=== PATIENT | male | born 1970 | race Caucasian/White ===

== ENCOUNTER 2016-08-18 21:11 | Emergency (ER) | payer BC ==
[2016-08-18 21:32] VITALS: BP 134/78; PULSE 98; RESP 18; TEMP 98.5
--- NOTE | 2016-08-18 21:50 | ED ---
General Adult HPI - General Chief complaint: Back Pain/Injury Stated complaint: Back Pain Time Seen by Provider: 08/18/16 21:39 Source: patient, RN notes reviewed Mode of arrival: ambulatory Limitations: no limitations - History of Present Illness Initial comments: Patient for 46-year-old male who presents emergency room today with chief complaint of acute on chronic back pain. He does admit that he's had pain meds been radiating up from the lower back. He states feels it in his shoulders. He states worse with movements. He states that he feels like it's better as he gets up and moves around lesions up. He does admit that he's had similar pain in the past that is gone to chiropractors for. he is also had massages for symptoms help. States she's used ibuprofen and tramadol which helps with the pain. Patient does admit that it was worse today while he was at work. Denies any specific injury or trauma. Denies any other complaints or symptoms. Patient denies any recent fever, chills, shortness of breath, chest pain, abdominal pain, nausea or vomiting, numbness or tingling, dysuria or hematuria, constipation or diarrhea, headaches or visual changes, or any other complaints. - Related Data Previous Rx's Medication Instructions Recorded Aspirin 81 mg PO DAILY #1 chewable 02/20/16 Lisinopril-Hctz 20-12.5 mg 1 tab PO BID #60 tab 02/20/16 [Zestoretic 20-12.5] Cyclobenzaprine [Flexeril] 10 mg PO TID #20 tab 08/18/16 Allergies Allergy/AdvReac Type Severity Reaction Status Date / Time No Known Allergies Allergy Verified 08/18/16 21:31 Review of Systems ROS Statement: Those systems with pertinent positive or pertinent negative responses have been documented in the HPI. ROS Other: All systems not noted in ROS Statement are negative. Past Medical History Past Medical History: GERD/Reflux Additional Past Medical History / Comment(s): diet controlled diabetic History of Any Multi-Drug Resistant Organisms: None Reported Past Surgical History: Appendectomy Additional Past Anesthesia/Blood Transfusion Reaction / Comment(s): combatative when coming out of aa Past Psychological History: No Psychological Hx Reported Smoking Status: Never smoker Past Alcohol Use History: None Reported Past Drug Use History: None Reported - Past Family History Mother Additional Family Medical History / Comment(s): crohns. 3 aunts on mom side had colon ca Father Family Medical History: Congestive Heart Failure (CHF) Additional Family Medical History / Comment(s): dads 7 brothers had chf as well General Exam - General Exam Comments Initial Comments: General: The patient is awake and alert, in no distress, and does not appear acutely ill. Eye: Pupils are equal, round and reactive to light, extra-ocular movements are intact. No nystagmus. There is normal conjunctiva bilaterally. No signs of icterus. Ears, nose, mouth and throat: There are moist mucous membranes and no oral lesions. Neck: The neck is supple, there is no tenderness or JVD. Cardiovascular: There is a regular rate and rhythm. No murmur, rub or gallop is appreciated. Respiratory: Lungs are clear to auscultation, respirations are non-labored, breath sounds are equal. No wheezes, stridor, rales, or rhonchi. Musculoskeletal: Full range of motion. No murmur. Cervical, thoracic, lumbar spine. No step-offs is appreciated. Mild tenderness lower lumbar. Mild tenderness paravertebrally to the upper. Pain reproduced with certain movements. Strength 5/5. Sensation intact. Pulses equal bilaterally 2+. Neurological: A&O x 3. CN II-XII intact, There are no obvious motor or sensory deficits. Coordination appears grossly intact. Speech is normal. Skin: Skin is warm and dry and no rashes or lesions are noted. Psychiatric: Cooperative, appropriate mood & affect, normal judgment. Limitations: no limitations Course Vital Signs 08/18/16 21:29 Temperature 98.5 F Pulse Rate 98 Respiratory 18 Rate Blood Pressure 134/78 O2 Sat by Pulse 97 Oximetry Medical Decision Making - Medical Decision Making Patient's pain symptoms consistent musculoskeletal. Advised to follow-up with the family doctor in orthopedic. Disposition Clinical Impression: Acute exacerbation of chronic low back pain Disposition: HOME SELF-CARE Condition: Good Instructions: Chronic Back Pain (ED) Additional Instructions: Please use medication as discussed. Please follow-up with family doctor in the next 2 days of symptoms have not improved. Please return to emergency room if the symptoms increase or worsen or for any other concerns. Prescriptions: Cyclobenzaprine [Flexeril] 10 mg PO TID #20 tab Time of Disposition: 21:49
[2016-08-18] MEDS ORDERED: CYCLOBENZAPRINE 10MG STARTER 3 TAB BTL PO STA (22:03)
== END 2016-08-18 22:15 | disposition home or self-care (01) ==
LOC: EC 21:11
DX: G89.29 Other chronic pain (principal); M54.5 Low back pain
CPT/HCPCS: 99283

== ENCOUNTER 2016-11-13 06:23 | Day surgery (SDC) | payer BC ==
[2016-11-10 14:52] VITALS: BMI 42.3
[~2016-11-13 06:23] MED LIST: DEXAMETHASONE SOD PHOSPHATE 10 MG/ML 1 ML VIAL IV ONE; HEPARIN SODIUM,PORCINE 5,000 UNIT/ML 1 ML VIAL SQ ONE; LACTATED RINGERS 1,000 ML IV SCH; LIDOCAINE 1% 20 ML VIAL (10MG/ML) FOR IV START INTRADERMA PRN; ONDANSETRON 4 MG/2 ML VIAL IVP ONE; SCOPOLAMINE 1.5MG/72HR PATCH TRANSDERM ONE; ceFAZolin 3 GM in SODIUM CHLORIDE 0.9% 100 ML IVPB ONE
[2016-11-13 06:46] LABS: Glucose,Whole Blood 120 mg/dL (75-99)
[2016-11-13] MEDS ORDERED: LIDOCAINE 4% (PF) 5 ML AMP IH STA (07:22)
--- NOTE | 2016-11-13 07:47 | P.GSHP ---
History of Present Illness H&P Date: 11/13/16 Chief Complaint: Right upper Quadrant pain This is a 46-year-old male for from Dr. Dave Trinh. Patient has had complaints of epigastric and right upper quadrant pain. His recent workup shows evidence of cholelithiasis with chronic cholecystitis. He presents today for laparoscopic cholecystectomy - Constitutional Constitutional: Reports as per HPI Past Medical History Past Medical History: Diabetes Mellitus, GERD/Reflux, Hypertension, Myocardial Infarction ([place]) Additional Past Medical History / Comment(s): DIET CONTROLLED DIABETIC Last Myocardial Infarction Date:: 02/19/16 History of Any Multi-Drug Resistant Organisms: None Reported Past Surgical History: Appendectomy, Bariatric Surgery, Heart Catheterization Additional Past Surgical History / Comment(s): LAB BAND Past Anesthesia/Blood Transfusion Reactions: Previous Problems w/ Anesthesia Additional Past Anesthesia/Blood Transfusion Reaction / Comment(s): COMBATIVE WHEN COMING OUT OF ANESTHESIA Smoking Status: Never smoker - Past Family History Mother Additional Family Medical History / Comment(s): crohns. Father Family Medical History: Congestive Heart Failure (CHF) Additional Family Medical History / Comment(s): dads 7 brothers had chf as well Medications and Allergies Home Medications Medication Instructions Recorded Confirmed Type Cholecalciferol [Vitamin D3] 1,000 unit PO DAILY 08/18/16 11/10/16 History Ibuprofen [Motrin] 800 mg PO BID PRN 08/18/16 11/10/16 History Multivitamin [Men's Multi-Vitamin] 1 tab PO DAILY 08/18/16 11/10/16 History Aspirin [Adult Low Dose Aspirin EC] 81 mg PO DAILY 11/10/16 11/10/16 History Allergies Allergy/AdvReac Type Severity Reaction Status Date / Time No Known Allergies Allergy Verified 11/13/16 06:36 Surgical - Exam Vital Signs Temp Pulse Resp BP Pulse Ox 97 F L 83 16 184/89 98 11/13/16 06:39 11/13/16 06:39 11/13/16 06:39 11/13/16 06:39 11/13/16 06:39 - General well developed, no distress - Eyes PERRL - ENT normal pinna - Neck no masses - Respiratory normal expansion - Cardiovascular Rhythm: regular - Abdomen Mild right upper quadrant pain Abdomen: soft Results - Labs Abnormal Lab Results - Last 24 Hours (Table) 11/13/16 Range/Units 06:43 POC Glucose (mg/dL) 120 H (75-99) mg/dL Assessment and Plan Plan: Right upper quadrant pain, cholelithiasis. We'll perform laparoscopic cholecystectomy.
[2016-11-13] MEDS ORDERED: ROCURONIUM BROMIDE 10 MG/ML 10 ML VIAL IV ONE (07:50)
[2016-11-13] MEDS ORDERED: SUCCINYLCHOLINE CHLORIDE VIAL 200 MG/10 ML VIAL IV ONE (07:50)
[2016-11-13] MEDS ORDERED: GLYCOPYRROLATE 0.2 MG/ML 2 ML VIAL ONE (07:50)
[2016-11-13] MEDS ORDERED: LIDOCAINE 1% INJ 10MG/ML (20 ML MDV) ONE (07:50)
[2016-11-13] MEDS ORDERED: fentaNYL (PF) 50 MCG/ML 2 ML AMP ONE (07:50)
[2016-11-13] MEDS ORDERED: NEOSTIGMINE 1 MG/ML 10 ML VIAL ONE (07:50)
[2016-11-13] MEDS ORDERED: PROPOFOL 10 MG/ML 20 ML VIAL IV ONE (07:50)
[2016-11-13] MEDS ORDERED: MIDAZOLAM 2 MG/2 ML VIAL ONE (07:50)
[2016-11-13] MEDS ORDERED: LIDOCAINE 1%-EPI 1:100,000 20 ML VIAL SQ ONE (08:22)
--- NOTE | 2016-11-13 09:06 | P.OP ---
Date of Procedure: 11/13/16 Preoperative Diagnosis: Cholecystitis Cholelithiasis Postoperative Diagnosis: Cholecystitis Cholelithiasis Procedure(s) Performed: Laparoscopic cholecystectomy Implants: Anesthesia: LISA Surgeon: Kvng Mills Pathology: other Condition: stable Disposition: PACU (All bladder) Indications for Procedure: Operative Findings: Description of Procedure: The patient was placed on the operating table. The patient received a general endotracheal tube anesthesia. The patients abdomen was prepped and draped in the usual sterile fashion. Through an infraumbilical stab incision, the fascia of the anterior abdominal wall was grasped with a pair of Kochers and then the Veress needle was placed in the peritoneal cavity. Position of the Veress needle was confirmed with positive drop test. The abdomen was then insufflated. After adequate insufflation, the 10 mm trocar was placed in the peritoneal cavity. Following this the laparoscope was placed in the peritoneal cavity. The patient was placed in the head-up, right side up position and then a 5 mm trocar was placed in the right lateral and right subcostal position under direct visualization. A 8 mm trocar was placed in the epigastric position. The gallbladder was grasped in the fundus and infundibulum. Traction on the gallbladder was placed in the lateral and the cephalad positions. The triangle of Calot was visualized.. The cystic duct was bluntly dissected until the union of the cystic duct and common bile duct was seen. Cystic duct was then ligated with a 2-0 Ethibond suture and the tied knot device. 2 sutures used to ligate the cystic duct. And then the cystic duct was then transected with Harmonic scissors.. The cystic artery divided and sealed with the Harmonic scissors. The gallbladder was then removed from the liver bed using Harmonic scissors. The gallbladder was then extracted through the epigastric port site. Operative field was checked for any bleeding spots and Harmonic scissors was used to coagulate the liver bed. The abdomen was irrigated. The trocars were removed. The skin was closed using interrupted 3- 0 Vicryl suture. Dermabond dressing were applied. The patient tolerated the procedure well.
[2016-11-13] MEDS ORDERED: LACTATED RINGERS 1,000 ML IV ONE ×3 (09:10→10:18)
[2016-11-13 09:26] VITALS: TEMP 98
[2016-11-13] MEDS ORDERED: KETOROLAC 30 MG/ML 1 ML VIAL IVP ONE (09:38)
[2016-11-13] MEDS: HYDROmorphone 1 MG/ML 1 ML SYRINGE IVP PRN ×3 (09:55→10:18)
[2016-11-13 10:26] VITALS: RESP 16
[2016-11-13] MEDS ORDERED: HYDROcodone/APAP 7.5-325MG 1 EACH TAB PO ONE (11:21)
[2016-11-13 12:20] VITALS: BP 138/77; PULSE 94
== END 2016-11-13 12:55 | disposition home or self-care (01) ==
LOC: OR 06:23
PROVIDERS: ATTEND Surgery
DX: K80.10 Calculus of gallbladder with chronic cholecystitis without obstruction (principal); E88.89 Other specified metabolic disorders; Z98.84 Bariatric surgery status; I25.2 Old myocardial infarction; E11.9 Type 2 diabetes mellitus without complications; I10 Essential (primary) hypertension; E66.01 Morbid (severe) obesity due to excess calories; Z68.41 Body mass index [BMI] 40.0-44.9, adult; Z79.82 Long term (current) use of aspirin; Z79.899 Other long term (current) drug therapy
CPT/HCPCS: 94640; 93005; 88304; 47562; J2001 ×2; J2250; J0330; J1644; J1100; J2710; J0690; J2405; J3010; J1885; J1170; J2704

== ENCOUNTER 2016-11-19 13:47 | Emergency (ER) | payer BC ==
--- NOTE | 2016-11-19 15:13 | ED ---
General Adult HPI - General Chief complaint: Recheck/Abnormal Lab/Rx Stated complaint: Leg swelling Time Seen by Provider: 11/19/16 14:54 Source: patient, RN notes reviewed Mode of arrival: ambulatory Limitations: no limitations - History of Present Illness Initial comments: Patient is a pleasant 46 year old male presenting to the emergency department complaining of inner thigh discomfort. Onset of symptoms was 5 days ago. Patient did have gallbladder surgery 6 days ago. Patient states it feels somewhat like chaffing however worse. Discomfort is increased with touch and movement. Patient states there may be some discomfort and swelling of the scrotal region as well. Patient states his legs have been somewhat achy since the day after surgery. No abdominal pain. No fevers. No nausea vomiting. - Related Data Home Medications Medication Instructions Recorded Confirmed Multivitamin [Men's Multi-Vitamin] 1 tab PO DAILY 08/18/16 11/19/16 Aspirin [Adult Low Dose Aspirin EC] 81 mg PO DAILY 11/10/16 11/19/16 Docusate [Colace] 100 mg PO BID PRN 11/19/16 11/19/16 HYDROcodone/APAP 7.5-325MG [[place] 1 tab PO Q4H PRN 11/19/16 11/19/16 7.5] Losartan Potassium 50 mg PO DAILY 11/19/16 11/19/16 Previous Rx's Medication Instructions Recorded Cephalexin [Keflex] 500 mg PO QID #40 cap 11/19/16 Allergies Allergy/AdvReac Type Severity Reaction Status Date / Time No Known Allergies Allergy Verified 11/19/16 16:08 Review of Systems ROS Statement: Those systems with pertinent positive or pertinent negative responses have been documented in the HPI. ROS Other: All systems not noted in ROS Statement are negative. Constitutional: Denies: fever Eyes: Denies: eye pain ENT: Denies: ear pain Respiratory: Denies: cough Cardiovascular: Denies: chest pain Endocrine: Denies: fatigue Gastrointestinal: Denies: abdominal pain, vomiting Genitourinary: Denies: urgency Musculoskeletal: Denies: back pain Skin: Reports: rash Neurological: Denies: weakness Past Medical History Past Medical History: Diabetes Mellitus, GERD/Reflux, Hypertension, Myocardial Infarction ([place]) Additional Past Medical History / Comment(s): DIET CONTROLLED DIABETIC History of Any Multi-Drug Resistant Organisms: None Reported Past Surgical History: Appendectomy, Bariatric Surgery, Cholecystectomy, Heart Catheterization Additional Past Surgical History / Comment(s): LAB BAND Past Anesthesia/Blood Transfusion Reactions: Previous Problems w/ Anesthesia Additional Past Anesthesia/Blood Transfusion Reaction / Comment(s): COMBATIVE WHEN COMING OUT OF ANESTHESIA Past Psychological History: No Psychological Hx Reported Smoking Status: Never smoker Past Alcohol Use History: None Reported Past Drug Use History: None Reported - Past Family History Mother Additional Family Medical History / Comment(s): crohns. Father Family Medical History: Congestive Heart Failure (CHF) Additional Family Medical History / Comment(s): dads 7 brothers had chf as well General Exam Limitations: no limitations General appearance: alert, in no apparent distress Head exam: Present: atraumatic Eye exam: Present: normal appearance, PERRL ENT exam: Present: normal oropharynx Neck exam: Present: normal inspection Respiratory exam: Present: normal lung sounds bilaterally Cardiovascular Exam: Present: regular rate, normal rhythm GI/Abdominal exam: Present: soft, tenderness (Minimal tenderness in the epigastric region were patient's incision is.) exam: Present: other (Trace amount of erythema of the scrotum. No significant tenderness. No significant swelling.) Extremities exam: Present: other (Mild discomfort through exam of the legs.) Neurological exam: Present: alert Psychiatric exam: Present: normal affect, normal mood Skin exam: Present: rash (Mild erythema upper inner thighs right greater than left.) Course Vital Signs 11/19/16 11/19/16 11/19/16 13:59 15:13 16:06 Temperature 99.0 F Pulse Rate 107 H 70 96 Respiratory 18 18 18 Rate Blood Pressure 153/80 156/78 143/67 O2 Sat by Pulse 97 95 Oximetry Medical Decision Making - Medical Decision Making Case was discussed with Dr. Moeller who agrees with plan. Patient and family updated on results and need for follow-up. Patient states he does have an appointment Thursday with Dr. Mills. Disposition Clinical Impression: Cellulitis Disposition: HOME SELF-CARE Condition: Stable Instructions: Cellulitis (ED) Additional Instructions: Please follow-up tomorrow with your primary care physician. Please also follow- up with your surgeon, Dr. Mills Thursday as scheduled. Return for fever, increased pain, swelling, redness, worsening symptoms or other concerns. Prescriptions: Cephalexin [Keflex] 500 mg PO QID #40 cap Referrals: Dave Cruz DO [Primary Care Provider] - 1-2 days Time of Disposition: 16:36
--- NOTE | 2016-11-19 15:50 | US ---
EXAMINATION TYPE: US venous doppler duplex LE DATE OF EXAM: 11/19/2016 3:41 PM COMPARISON: NONE CLINICAL HISTORY: Pain. Bilateral leg edema, worse on the left x 4 days SIDE PERFORMED: Bilateral TECHNIQUE: The lower extremity deep venous system is examined utilizing real time linear array sonog bright with graded compression, doppler sonography and color-flow sonography. VESSELS IMAGED: External Iliac Vein (EIV) Common Femoral Vein Deep Femoral Vein Greater Saphenous Vein * Femoral Vein Popliteal Vein Small Saphenous Vein * Proximal Calf Veins (* superficial vessels) Right Leg: No evidence of DVT Left Leg: No evidence of DVT Grayscale, color doppler, spectral doppler imaging performed of the deep veins of the lower extremiti es. There is normal flow, compressibility, vascular waveforms bilaterally. IMPRESSION: No ultrasound evidence for acute DVT in either lower extremity.
--- NOTE | 2016-11-19 16:15 | US ---
EXAMINATION TYPE: US scrotum with doppler. Grayscale and color Doppler Duplex imaging performed of estelita pagan scrotum. DATE OF EXAM: 11/19/2016 COMPARISON: NONE CLINICAL HISTORY: Pain. Bilateral scrotal edema and pain x 2-3 days EXAM MEASUREMENTS: TESTICLES: Right Testicle: 4.8 x 2.7 x 4.7cm Left Testicle: 4.7 x 2.5 x 3.9cm EPIDIDYMIS HEAD: Right Epididymis: 1.2cm Left Epididymis: 1.4cm Doppler performed to assess for testicular vascularity; good bilateral color flow and waveforms are s een. There is no evidence of testicular torsion. Presence of hydroceles: yes, fluid collection lateral left testicle = 1.4 x 1.3 x 1.3cm and inferior to right testicle = 2.2cm Presence of varicoceles: no Cystic area left testicle = 0.4 x 0.5 x 0.3cm IMPRESSION: 1. NORMAL INTRINSIC TESTICLES. 2. SMALL LEFT-SIDED HYDROCELE.
[2016-11-19] MEDS ORDERED: CEPHALEXIN 500MG STARTER PACK 4 CAP BTL PO STA (16:30)
[2016-11-19 17:06] VITALS: BP 134/86; PULSE 82; RESP 20; TEMP 98.5
== END 2016-11-19 17:06 | disposition home or self-care (01) ==
LOC: EC 13:47
DX: L03.90 Cellulitis, unspecified (principal); N50.89 Other specified disorders of the male genital organs; I10 Essential (primary) hypertension; I25.2 Old myocardial infarction; Z79.82 Long term (current) use of aspirin; Z79.899 Other long term (current) drug therapy; Z98.890 Other specified postprocedural states
CPT/HCPCS: 76870; 93970; 93975; 99283

== ENCOUNTER 2017-06-03 18:10 | Emergency (ER) | payer BC ==
[2017-06-03 18:36] VITALS: RESP 18; TEMP 98.5
[2017-06-03 18:48] LABS: Appearance,Urine Clear (Clear); Bilirubin,Urine Negative (Negative); Blood,Urine Negative (Negative); Color,Urine Yellow; Glucose,Urine (UA) Trace (Negative); Ketones,Urine Trace (Negative); Leukocyte Esterase,Urine Negative (Negative); Nitrite,Urine Negative (Negative); Protein,Urine Trace (Negative); Specific Gravity,Urine 1.023 (1.001-1.035); Urobilinogen,Urine <2.0 mg/dL (<2.0)
[2017-06-03] MEDS ORDERED: HYDROmorphone 2 MG/ML 1 ML SYRINGE IVP STA (20:59)
[2017-06-03] MEDS ORDERED: KETOROLAC 30 MG/ML 1 ML VIAL IVP STA (20:59)
[2017-06-03] MEDS ORDERED: SODIUM CHLORIDE 0.9% 1,000 ML IV STA (20:59)
--- NOTE | 2017-06-03 21:10 | ED ---
Abdominal Pain HPI - General Chief Complaint: Abdominal Pain Stated Complaint: Back pain Time Seen by Provider: 06/03/17 20:51 Source: patient Mode of arrival: ambulatory Limitations: no limitations - History of Present Illness Initial Comments: 47-year-old male patient presents to the emergency department today for evaluation of right lower back pain. Patient states that symptoms started 2 days ago. He states that the pain is constantly present, but has episodes with pain becomes more severe. States it hurts worse with movement. He denies any numbness or tingling in his legs. Denies any loss of bowel or bladder control. States he does have lower back pain but this is much different. States the pain is more localized. He states he has had kidney stones in the past and the pain feels similar to that. He denies any difficulty urinating. Denies any hematuria. He is not feeling nauseated nor has he vomited. Denies any constipation or diarrhea. States that he has had blood in his stools for quite some time now. States that recently he has had increased bloody stools. He states it is bright red. He states he knows he has internal hemorrhoids he is unsure if this is related. Patient states last colonoscopy was approximately 4- 5 years ago and he did have polyps on that exam. He denies any abdominal pain. Patient denies any recent rash, fever, chills, shortness breath, chest pain, back pain, numbness, tingling, dizziness, weakness, headache, visual changes, or any other complaints. - Related Data Home Medications Medication Instructions Recorded Confirmed Multivitamin [Men's Multi-Vitamin] 1 tab PO DAILY 08/18/16 06/03/17 Aspirin [Adult Low Dose Aspirin EC] 81 mg PO DAILY 11/10/16 06/03/17 Losartan Potassium 50 mg PO DAILY 11/19/16 06/03/17 Cholecalciferol [Vitamin D3] 1,000 unit PO DAILY 06/03/17 06/03/17 Previous Rx's Medication Instructions Recorded Cyclobenzaprine [Flexeril] 10 mg PO TID #15 tab 06/03/17 Hydrocodone/Acetaminophen [[place] 1 tab PO Q6HR PRN #15 tab 06/03/17 5-325] Allergies Allergy/AdvReac Type Severity Reaction Status Date / Time No Known Allergies Allergy Verified 06/03/17 21:10 Review of Systems ROS Statement: Those systems with pertinent positive or pertinent negative responses have been documented in the HPI. ROS Other: All systems not noted in ROS Statement are negative. Past Medical History Past Medical History: Diabetes Mellitus, GERD/Reflux, Hypertension, Myocardial Infarction ([place]) Additional Past Medical History / Comment(s): DIET CONTROLLED DIABETIC Last Myocardial Infarction Date:: 02/19/16 History of Any Multi-Drug Resistant Organisms: None Reported Past Surgical History: Appendectomy, Bariatric Surgery, Cholecystectomy, Heart Catheterization Additional Past Surgical History / Comment(s): LAB BAND Past Anesthesia/Blood Transfusion Reactions: Previous Problems w/ Anesthesia Additional Past Anesthesia/Blood Transfusion Reaction / Comment(s): COMBATIVE WHEN COMING OUT OF ANESTHESIA Past Psychological History: No Psychological Hx Reported Smoking Status: Never smoker Past Alcohol Use History: None Reported Past Drug Use History: None Reported - Past Family History Mother Additional Family Medical History / Comment(s): crohns. Father Family Medical History: Congestive Heart Failure (CHF) Additional Family Medical History / Comment(s): dads 7 brothers had chf as well General Exam Limitations: no limitations General appearance: alert, in no apparent distress, other (Physical well- developed, well-nourished adult male patient in no acute distress. Vital signs upon presentation were temperature 98.5F, pulse 103, respirations 18, blood pressure 158/79, pulse ox 96% on room air.) Eye exam: Present: normal appearance, PERRL, EOMI. Absent: scleral icterus, conjunctival injection, periorbital swelling ENT exam: Present: normal exam, normal oropharynx, mucous membranes moist Respiratory exam: Present: normal lung sounds bilaterally. Absent: respiratory distress, wheezes, rales, rhonchi, stridor Cardiovascular Exam: Present: regular rate, normal rhythm, normal heart sounds. Absent: systolic murmur, diastolic murmur, rubs, gallop, clicks GI/Abdominal exam: Present: soft, normal bowel sounds. Absent: distended, tenderness, guarding, rebound, rigid Extremities exam: Present: normal inspection, full ROM, normal capillary refill. Absent: tenderness, pedal edema, joint swelling, calf tenderness Back exam: Present: normal inspection, tenderness (Right lower back tenderness, mild.). Absent: CVA tenderness (R), CVA tenderness (L) Neurological exam: Present: alert, oriented X3, CN II-XII intact Psychiatric exam: Present: normal affect, normal mood Skin exam: Present: warm, dry, intact, normal color. Absent: rash Course Vital Signs 06/03/17 06/03/17 18:34 22:54 Temperature 98.5 F Pulse Rate 103 H 92 Respiratory 18 18 Rate Blood Pressure 158/79 140/79 O2 Sat by Pulse 96 95 Oximetry Medical Decision Making - Medical Decision Making 47-year-old male patient presented to the emergency department today for complaints of right lower back pain. He also reported a blood in his stools however states his been going on on and off since he turned 20. He states he does get regular colonoscopies. Physical examination did reveal some mild right lower back tenderness. Abdomen was soft and nontender. KUB x-ray and CT of the abdomen and pelvis was negative for any acute abdominal abnormalities. There was evidence of what could be a choledochal cyst versus abnormal calcification the biliary tree. Labs reviewed and were unremarkable. Patient was informed of all these findings. I did discuss the possibility of his pain being musculoskeletal in origin. He'll be given pain medication and muscle relaxers for management. He is instructed to follow-up with his primary care physician as well as his GI specialist for further evaluation of the blood in his stools as well as the pain is lower back. He is instructed to return here immediately for any new, worsening, or concerning symptoms. He verbalizes understanding and agrees with this plan. - Lab Data Result diagrams: 06/03/17 21:30 06/03/17 21:30 Lab Results 06/03/17 06/03/17 06/03/17 Range/Units 18:37 21:30 21:30 WBC 8.4 (3.8-10.6) k/uL RBC 5.37 (4.30-5.90) m/uL Hgb 15.8 (13.0-17.5) gm/dL Hct 46.9 (39.0-53.0) % MCV 87.3 (80.0-100.0) fL MCH 29.4 (25.0-35.0) pg MCHC 33.6 (31.0-37.0) g/dL RDW 12.9 (11.5-15.5) % Plt Count 252 (150-450) k/uL Neutrophils % 53 % Lymphocytes % 36 % Monocytes % 6 % Eosinophils % 2 % Basophils % 1 % Neutrophils # 4.4 (1.3-7.7) k/uL Lymphocytes # 3.1 (1.0-4.8) k/uL Monocytes # 0.5 (0-1.0) k/uL Eosinophils # 0.2 (0-0.7) k/uL Basophils # 0.0 (0-0.2) k/uL PT (9.0-12.0) sec INR (<1.2) APTT (22.0-30.0) sec Sodium 141 (137-145) mmol/L Potassium 4.3 (3.5-5.1) mmol/L Chloride 106 (98-107) mmol/L Carbon Dioxide 25 (22-30) mmol/L Anion Gap 10 mmol/L BUN 18 (9-20) mg/dL Creatinine 0.73 (0.66-1.25) mg/dL Est GFR (MDRD) Af Amer >60 (>60 ml/min/1.73 sqM) Est GFR (MDRD) Non-Af >60 (>60 ml/min/1.73 sqM) Glucose 143 H (74-99) mg/dL Calcium 9.5 (8.4-10.2) mg/dL Total Bilirubin 0.3 (0.2-1.3) mg/dL AST 43 (17-59) U/L ALT 74 H (21-72) U/L Alkaline Phosphatase 135 H (38-126) U/L Total Protein 7.3 (6.3-8.2) g/dL Albumin 4.1 (3.5-5.0) g/dL Amylase 75 (30-110) U/L Lipase 119 (23-300) U/L Urine Color Yellow Urine Appearance Clear (Clear) Urine pH 6.0 (5.0-8.0) Ur Specific [place] 1.023 (1.001-1.035) Urine Protein Trace H (Negative) Urine Glucose (UA) Trace H (Negative) Urine Ketones Trace H (Negative) Urine Blood Negative (Negative) Urine Nitrite Negative (Negative) Urine Bilirubin Negative (Negative) Urine Urobilinogen <2.0 (<2.0) mg/dL Ur Leukocyte Esterase Negative (Negative) 06/03/17 Range/Units 21:30 WBC (3.8-10.6) k/uL RBC (4.30-5.90) m/uL Hgb (13.0-17.5) gm/dL Hct (39.0-53.0) % MCV (80.0-100.0) fL MCH (25.0-35.0) pg MCHC (31.0-37.0) g/dL RDW (11.5-15.5) % Plt Count (150-450) k/uL Neutrophils % % Lymphocytes % % Monocytes % % Eosinophils % % Basophils % % Neutrophils # (1.3-7.7) k/uL Lymphocytes # (1.0-4.8) k/uL Monocytes # (0-1.0) k/uL Eosinophils # (0-0.7) k/uL Basophils # (0-0.2) k/uL PT 10.1 (9.0-12.0) sec INR 1.0 (<1.2) APTT 24.8 (22.0-30.0) sec Sodium (137-145) mmol/L Potassium (3.5-5.1) mmol/L Chloride (98-107) mmol/L Carbon Dioxide (22-30) mmol/L Anion Gap mmol/L BUN (9-20) mg/dL Creatinine (0.66-1.25) mg/dL Est GFR (MDRD) Af Amer (>60 ml/min/1.73 sqM) Est GFR (MDRD) Non-Af (>60 ml/min/1.73 sqM) Glucose (74-99) mg/dL Calcium (8.4-10.2) mg/dL Total Bilirubin (0.2-1.3) mg/dL AST (17-59) U/L ALT (21-72) U/L Alkaline Phosphatase (38-126) U/L Total Protein (6.3-8.2) g/dL Albumin (3.5-5.0) g/dL Amylase (30-110) U/L Lipase (23-300) U/L Urine Color Urine Appearance (Clear) Urine pH (5.0-8.0) Ur Specific [place] (1.001-1.035) Urine Protein (Negative) Urine Glucose (UA) (Negative) Urine Ketones (Negative) Urine Blood (Negative) Urine Nitrite (Negative) Urine Bilirubin (Negative) Urine Urobilinogen (<2.0) mg/dL Ur Leukocyte Esterase (Negative) - Radiology Data Radiology results: report reviewed, image reviewed CT abdomen and pelvis without contrast was obtained, report was reviewed in its entirety. Impression by Dr. Sandra shows no evidence of renal stone or obstruction. Cholecystectomy. Possible choledocholithiasis or unusual calcified gallstone in the biliary tree. Cholecystectomy is new compared to old exam. No sign of appendicitis. Two upright views of the abdomen show bariatric surgery lap band noted. Bowel gas pattern is normal. There is no sign of intestinal obstruction or pneumoperitoneum. Fecal pattern is normal. Lung bases are clear. There are no definite pathologic calcifications over the kidneys. There is a 4 mm calcification over the right upper quadrant in the right renal calculus cannot be entirely excluded. There is spurring of the acetabula. Conclusion by Dr. Sandra shows nonacute abdomen. Disposition Clinical Impression: Acute low back pain, Lower GI bleeding, Choledochal cyst Disposition: HOME SELF-CARE Condition: Good Instructions: Gastrointestinal Bleeding (ED), Acute Low Back Pain (ED) Additional Instructions: Take medications as directed. Apply warm compresses and continue using her home pain relief cream. Follow-up with your primary care physician and your GI specialist for further evaluation. Return here immediately for any new, worsening, or concerning symptoms. Prescriptions: Cyclobenzaprine [Flexeril] 10 mg PO TID #15 tab Hydrocodone/Acetaminophen [[place] 5-325] 1 tab PO Q6HR PRN #15 tab PRN Reason: Pain Referrals: Dave Cruz DO [Primary Care Provider] - 1-2 days Marjorie Lunsford MD [STAFF PHYSICIAN] - 1-2 days Time of Disposition: 23:10
[2017-06-03 21:49] LABS: Basophils % (A) 1 %; Eosinophils # (A) 0.2 k/uL (0-0.7); Eosinophils % (A) 2 %; HCT 46.9 % (39.0-53.0); HGB 15.8 gm/dL (13.0-17.5); Lymphocytes # (A) 3.1 k/uL (1.0-4.8); Lymphocytes % (A) 36 %; MCH 29.4 pg (25.0-35.0); MCHC 33.6 g/dL (31.0-37.0); MCV 87.3 fL (80.0-100.0); Mean Platelet Volume 6.7; Monocytes # (A) 0.5 k/uL (0-1.0); Monocytes % (A) 6 %; Neutrophils # (A) 4.4 k/uL (1.3-7.7); Neutrophils % (A) 53 %; Platelet Count 252 k/uL (150-450); RBC 5.37 m/uL (4.30-5.90); RDW 12.9 % (11.5-15.5); WBC 8.4 k/uL (3.8-10.6)
--- NOTE | 2017-06-03 21:56 | XR ---
EXAMINATION TYPE: XR KUB DATE OF EXAM: 06/03/2017 9:48 PM CLINICAL HISTORY: Right flank pain TECHNIQUE: 2 upright views. COMPARISON: None. Findings There is bariatric surgery lap band noted. Bowel gas pattern is normal. There is no sign of intestina l obstruction or pneumoperitoneum. Fecal pattern is normal. Lung bases are clear. There are no defini te pathologic calcifications over the kidneys. There is a 4 mm calcification over the right upper florentin drant and a right renal calculus cannot be entirely excluded. There is spurring of the acetabula. CONCLUSION: Nonacute abdomen.
[2017-06-03 21:57] LABS: Partial Thromboplastin Time 24.8 sec (22.0-30.0); Prothrombin Time 10.1 sec (9.0-12.0)
[2017-06-03 22:02] LABS: ALT 74 U/L (21-72); AST 43 U/L (17-59); Albumin 4.1 g/dL (3.5-5.0); Alkaline Phosphatase 135 U/L (38-126); Amylase 75 U/L (30-110); Anion Gap 10 mmol/L; Blood Urea Nitrogen 18 mg/dL (9-20); Calcium 9.5 mg/dL (8.4-10.2); Carbon Dioxide 25 mmol/L (22-30); Chloride 106 mmol/L (98-107); Glucose 143 mg/dL (74-99); Lipase 119 U/L (23-300); Potassium 4.3 mmol/L (3.5-5.1); Sodium 141 mmol/L (137-145); Total Bilirubin 0.3 mg/dL (0.2-1.3); Total Protein 7.3 g/dL (6.3-8.2)
[2017-06-03 22:54] VITALS: BP 140/79; PULSE 92
--- NOTE | 2017-06-03 22:54 | CT ---
EXAMINATION TYPE: CT abdomen pelvis wo con DATE OF EXAM: 06/03/2017 COMPARISON: 09/22/2011 HISTORY: History of stones. Right flank pain. CT DLP: 2814.2 mGycm Automated exposure control for dose reduction was used. TECHNIQUE: Helical acquisition of images was performed from the lung bases through the pelvis. FINDINGS: Lung bases are clear of consolidation. There is no pleural effusion. There is gastric sleeve noted. L iver spleen pancreas appear normal. Bile ducts are not dilated. There are clips from cholecystectomy. There is a 1 cm ring calcification near the drea hepatis that raises the possibility of a choledoch al cyst or choledocholithiasis. There is no adrenal mass. Kidneys have normal size and contour. There is no hydronephrosis. There is no evidence of a renal mass. There is no retroperitoneal adenopathy. There is no ascites. There is no sign of appendicitis. Appendix is not seen. I see no intestinal wall thickening. There are no dilate d loops. Bladder distends smoothly. There is no free fluid in the abdomen. There is no sign of free a ir. There is multilevel spondylosis in the lumbar spine. There is some spinal stenosis at L4-5.. IMPRESSION: NO EVIDENCE OF RENAL STONE OR OBSTRUCTION. CHOLECYSTECTOMY. POSSIBLE CHOLEDOCHAL CYST OR UNUSUAL CALC IFIED GALLSTONE IN THE BILIARY TREE. CHOLECYSTECTOMY IS NEW COMPARED TO OLD EXAM. NO SIGN OF APPENDIC ITIS.
[2017-06-03] MEDS ORDERED: CYCLOBENZAPRINE 10MG STARTER 3 TAB BTL PO STA (23:12)
== END 2017-06-03 23:23 | disposition home or self-care (01) ==
LOC: EC 18:10
DX: K92.2 Gastrointestinal hemorrhage, unspecified (principal); Q44.4 Choledochal cyst; M54.5 Low back pain; I10 Essential (primary) hypertension; Z90.49 Acquired absence of other specified parts of digestive tract; Z98.890 Other specified postprocedural states; Z79.82 Long term (current) use of aspirin; Z79.899 Other long term (current) drug therapy
CPT/HCPCS: 36415; 80053; 82150; 83690; 85025; 85610; 85730; 81003; 74018; 74176; 99284; 96374; 96375; 96361; J1170; J1885

== ENCOUNTER 2019-04-18 06:43 | Day surgery (SDC) | payer BC ==
[2019-04-14 14:45] VITALS: BMI 41.5
[~2019-04-18 06:43] MED LIST changes: -DEXAMETHASONE SOD PHOSPHATE 10 MG/ML 1 ML VIAL IV ONE; -HEPARIN SODIUM,PORCINE 5,000 UNIT/ML 1 ML VIAL SQ ONE; -ONDANSETRON 4 MG/2 ML VIAL IVP ONE; -SCOPOLAMINE 1.5MG/72HR PATCH TRANSDERM ONE; -ceFAZolin 3 GM in SODIUM CHLORIDE 0.9% 100 ML IVPB ONE
[2019-04-18 07:11] VITALS: TEMP 97.5
[2019-04-18] MEDS ORDERED: LACTATED RINGERS 1,000 ML IV ONE ×2 (07:14)
[2019-04-18] MEDS ORDERED: PROPOFOL 10 MG/ML 20 ML VIAL IV ONE (07:49)
--- NOTE | 2019-04-18 07:55 | P.GSHP ---
History of Present Illness H&P Date: 04/18/19 Chief Complaint: rectal bleeding this a 48-year-old male who presents today with history of rectal bleeding. Patient resents today for colonoscopy. Past Medical History Past Medical History: GERD/Reflux, GI Bleed, Hypertension, Myocardial Infarction ([place]), Osteoarthritis (OA) Additional Past Medical History / Comment(s): States had "heart distress 02/19/16, step under a heart attack." Last Myocardial Infarction Date:: 02/19/16 History of Any Multi-Drug Resistant Organisms: None Reported Past Surgical History: Appendectomy, Bariatric Surgery, Cholecystectomy, Heart Catheterization Additional Past Surgical History / Comment(s): LAB BAND Past Anesthesia/Blood Transfusion Reactions: Previous Problems w/ Anesthesia Additional Past Anesthesia/Blood Transfusion Reaction / Comment(s): COMBATIVE WHEN COMING OUT OF ANESTHESIA. Past Psychological History: No Psychological Hx Reported Smoking Status: Never smoker Past Alcohol Use History: Occasional Past Drug Use History: None Reported - Past Family History Mother Additional Family Medical History / Comment(s): Crohns. Father Family Medical History: Congestive Heart Failure (CHF) Additional Family Medical History / Comment(s): Dad's 7 brothers had CHF as well. Medications and Allergies Home Medications Medication Instructions Recorded Confirmed Type Multivitamin [Men's Multi-Vitamin] 1 tab PO DAILY 08/18/16 04/14/19 History Aspirin [Adult Low Dose Aspirin EC] 81 mg PO DAILY 11/10/16 04/14/19 History Losartan Potassium 50 mg PO QAM 11/19/16 04/14/19 History Cholecalciferol [Vitamin D3] 1,000 unit PO DAILY 06/03/17 04/14/19 History Ibuprofen [Motrin] 800 mg PO Q8H PRN 04/14/19 04/14/19 History Allergies Allergy/AdvReac Type Severity Reaction Status Date / Time No Known Allergies Allergy Verified 04/14/19 14:46 Surgical - Exam Vital Signs Temp Pulse Resp BP Pulse Ox 97.5 F L 73 18 143/82 92 L 04/18/19 07:08 04/18/19 07:08 04/18/19 07:08 04/18/19 07:08 04/18/19 07:08 - General well developed, well nourished, no distress - Eyes PERRL - ENT normal pinna - Neck no masses - Respiratory normal expansion - Cardiovascular Rhythm: regular - Abdomen Abdomen: soft, non tender Assessment and Plan Assessment: rectal bleeding. We'll perform colonoscopy.
--- NOTE | 2019-04-18 08:06 | P.OP ---
Date of Procedure: 04/18/19 Preoperative Diagnosis: GI bleed Postoperative Diagnosis: external hemorrhoids Procedure(s) Performed: colonoscopy Anesthesia: MAC Surgeon: Kvng Mills Pathology: none sent Condition: stable Disposition: PACU Description of Procedure: the patient's placed on the endoscopy table in the lateral position. Sreceived IV sedation. Digital rectal exam was performed which revealed external hemorrhoids. The flexible colonoscope was then placed patient anus passed throughout the entire colon. The ileocecal valve was visualized. The cecum, ascending and transverse colon appeared normal. The descending; appeared normal. Scope was then brought back the rectum and this appeared normal. Scope was withdrawn for patient. And external hemorrhoids were noted. There is no active bleeding seen. It is presumed that his GI bleed was due to external hemorrhoids.
[2019-04-18 08:41] VITALS: BP 130/81; PULSE 71; RESP 17
== END 2019-04-18 08:47 | disposition home or self-care (01) ==
LOC: ORWHC2ENDO 06:43
PROVIDERS: ATTEND Surgery
DX: K64.4 Residual hemorrhoidal skin tags (principal); I10 Essential (primary) hypertension; I25.2 Old myocardial infarction; K21.9 Gastro-esophageal reflux disease without esophagitis; M19.90 Unspecified osteoarthritis, unspecified site; Z79.1 Long term (current) use of non-steroidal anti-inflammatories (NSAID); Z79.82 Long term (current) use of aspirin; Z82.49 Family history of ischemic heart disease and other diseases of the circulatory system; Z90.49 Acquired absence of other specified parts of digestive tract; Z98.84 Bariatric surgery status; E66.9 Obesity, unspecified
CPT/HCPCS: 45378; J2704

== ENCOUNTER 2020-06-04 07:02 | Observation (INO) | payer BC ==
[2020-06-04] MEDS ORDERED: ASPIRIN 81 MG PO STA (07:19)
[2020-06-04] MEDS ORDERED: NITROGLYCERIN OINT 1 INCH/GM PACKET TOPICAL STA (07:19)
--- NOTE | 2020-06-04 07:22 | ED ---
General Adult HPI - General Chief complaint: Chest Pain Stated complaint: Chest Pain Time Seen by Provider: 06/04/20 07:09 Source: patient, RN notes reviewed Mode of arrival: wheelchair Limitations: no limitations - History of Present Illness Initial comments: Patient is a pleasant 50-year-old male presenting to the emergency Department with complaints of chest discomfort. Onset of symptoms was around 6 AM while patient was at work. Patient was not exerting himself at that time. Discomfort was moderate and did radiate across his chest little bit. Difficult to describe the type of discomfort he had. No radiation to the back. No nausea. Patient was sweaty and short of breath. Patient did have some palpitations and lightheadedness. Patient did have similar symptoms in 2016 with negative heart catheterization. Discomfort is near resolved at this point. No leg pain or leg swelling. - Related Data Home Medications Medication Instructions Recorded Confirmed Losartan Potassium 50 mg PO DAILY 11/19/16 06/04/20 Ibuprofen [Motrin] 800 mg PO DAILY 04/14/19 06/04/20 Cholecalciferol (Vitamin D3) 125 mcg PO DAILY 06/04/20 06/04/20 [Vitamin D3 (5000 Iu)] Cider Vinegar [Apple Cider Vinegar] 300 mg PO DAILY 06/04/20 06/04/20 Multivit-Min/FA/Lycopen/Lutein 1 tab PO DAILY 06/04/20 06/04/20 [Centrum Silver Men Tablet] Turmeric Root Extract [Turmeric] 500 mg PO DAILY 06/04/20 06/04/20 traMADol HCL 50 mg PO Q8H PRN 06/04/20 06/04/20 Allergies Allergy/AdvReac Type Severity Reaction Status Date / Time No Known Allergies Allergy Verified 06/04/20 07:49 Review of Systems ROS Statement: Those systems with pertinent positive or pertinent negative responses have been documented in the HPI. ROS Other: All systems not noted in ROS Statement are negative. Constitutional: Denies: fever Eyes: Denies: eye pain ENT: Denies: ear pain Respiratory: Denies: cough Cardiovascular: Reports: chest pain, palpitations Endocrine: Denies: fatigue Gastrointestinal: Denies: abdominal pain, nausea Genitourinary: Denies: dysuria Musculoskeletal: Denies: back pain Skin: Denies: rash Neurological: Denies: weakness Past Medical History Past Medical History: GERD/Reflux, GI Bleed, Hypertension, Myocardial Infarction ([place]), Osteoarthritis (OA) Additional Past Medical History / Comment(s): States had "heart distress 02/19/16, step under a heart attack." Last Myocardial Infarction Date:: 02/19/16 History of Any Multi-Drug Resistant Organisms: None Reported Past Surgical History: Appendectomy, Bariatric Surgery, Cholecystectomy, Heart Catheterization Additional Past Surgical History / Comment(s): LAB BAND Past Anesthesia/Blood Transfusion Reactions: Previous Problems w/ Anesthesia Additional Past Anesthesia/Blood Transfusion Reaction / Comment(s): COMBATIVE WHEN COMING OUT OF ANESTHESIA. Past Psychological History: No Psychological Hx Reported Smoking Status: Never smoker Past Alcohol Use History: Occasional Past Drug Use History: None Reported - Past Family History Mother Additional Family Medical History / Comment(s): Crohns. Father Family Medical History: Congestive Heart Failure (CHF) Additional Family Medical History / Comment(s): Dad's 7 brothers had CHF as well. General Exam Limitations: no limitations General appearance: alert, in no apparent distress Head exam: Present: normocephalic Eye exam: Present: normal appearance Neck exam: Present: normal inspection Respiratory exam: Present: normal lung sounds bilaterally. Absent: chest wall tenderness Cardiovascular Exam: Present: regular rate, normal rhythm, normal heart sounds Expanded Peripheral pulses: 2+: Radial (R), Radial (L), Dorsalis Pedis (R), Dorsalis Pedis (L) GI/Abdominal exam: Present: soft. Absent: tenderness Extremities exam: Present: normal inspection. Absent: pedal edema, calf tenderness Neurological exam: Present: alert Psychiatric exam: Present: normal affect, normal mood Skin exam: Present: normal color Course Vital Signs 06/04/20 06/04/20 07:06 08:07 Temperature 98.3 F Pulse Rate 104 H 103 H Respiratory 18 20 Rate Blood Pressure 168/98 130/90 O2 Sat by Pulse 98 93 L Oximetry EKG Findings - EKG Comments: EKG Findings:: Sinus tachycardia 103. VA 126. QRS 102. QT 340. QTc 445. Normal axis. Normal QRS. No acute ST change. Medical Decision Making - Medical Decision Making Patient reevaluated and resting comfortably in bed. No chest discomfort at this time. Patient and family updated on results and plan. Dr. Cruz has been paged for admission - Lab Data Result diagrams: 06/04/20 07:21 06/04/20 07:21 Lab Results 06/04/20 06/04/20 06/04/20 Range/Units 07:21 07:21 07:21 WBC 6.7 (3.8-10.6) k/uL RBC 5.76 (4.30-5.90) m/uL Hgb 17.5 (13.0-17.5) gm/dL Hct 50.4 (39.0-53.0) % MCV 87.5 (80.0-100.0) fL MCH 30.3 (25.0-35.0) pg MCHC 34.6 (31.0-37.0) g/dL RDW 13.2 (11.5-15.5) % Plt Count 218 (150-450) k/uL MPV 6.8 Neutrophils % 62 % Lymphocytes % 30 % Monocytes % 5 % Eosinophils % 2 % Basophils % 1 % Neutrophils # 4.1 (1.3-7.7) k/uL Lymphocytes # 2.0 (1.0-4.8) k/uL Monocytes # 0.3 (0-1.0) k/uL Eosinophils # 0.1 (0-0.7) k/uL Basophils # 0.1 (0-0.2) k/uL PT 10.6 (9.0-12.0) sec INR 1.0 (<1.2) APTT 24.3 (22.0-30.0) sec D-Dimer 0.35 (<0.60) mg/L FEU Sodium 139 (137-145) mmol/L Potassium 4.0 (3.5-5.1) mmol/L Chloride 107 (98-107) mmol/L Carbon Dioxide 22 (22-30) mmol/L Anion Gap 10 mmol/L BUN 21 H (9-20) mg/dL Creatinine 0.91 (0.66-1.25) mg/dL Est GFR (CKD-EPI)AfAm >90 (>60 ml/min/1.73 sqM) Est GFR (CKD-EPI)NonAf >90 (>60 ml/min/1.73 sqM) Glucose 148 H (74-99) mg/dL Calcium 9.3 (8.4-10.2) mg/dL Magnesium 1.8 (1.6-2.3) mg/dL Total Bilirubin 0.8 (0.2-1.3) mg/dL AST 78 H (17-59) U/L ALT 104 H (4-49) U/L Alkaline Phosphatase 125 (38-126) U/L Troponin I (0.000-0.034) ng/mL Total Protein 8.0 (6.3-8.2) g/dL Albumin 4.5 (3.5-5.0) g/dL 06/04/20 Range/Units 07:21 WBC (3.8-10.6) k/uL RBC (4.30-5.90) m/uL Hgb (13.0-17.5) gm/dL Hct (39.0-53.0) % MCV (80.0-100.0) fL MCH (25.0-35.0) pg MCHC (31.0-37.0) g/dL RDW (11.5-15.5) % Plt Count (150-450) k/uL MPV Neutrophils % % Lymphocytes % % Monocytes % % Eosinophils % % Basophils % % Neutrophils # (1.3-7.7) k/uL Lymphocytes # (1.0-4.8) k/uL Monocytes # (0-1.0) k/uL Eosinophils # (0-0.7) k/uL Basophils # (0-0.2) k/uL PT (9.0-12.0) sec INR (<1.2) APTT (22.0-30.0) sec D-Dimer (<0.60) mg/L FEU Sodium (137-145) mmol/L Potassium (3.5-5.1) mmol/L Chloride (98-107) mmol/L Carbon Dioxide (22-30) mmol/L Anion Gap mmol/L BUN (9-20) mg/dL Creatinine (0.66-1.25) mg/dL Est GFR (CKD-EPI)AfAm (>60 ml/min/1.73 sqM) Est GFR (CKD-EPI)NonAf (>60 ml/min/1.73 sqM) Glucose (74-99) mg/dL Calcium (8.4-10.2) mg/dL Magnesium (1.6-2.3) mg/dL Total Bilirubin (0.2-1.3) mg/dL AST (17-59) U/L ALT (4-49) U/L Alkaline Phosphatase (38-126) U/L Troponin I <0.012 (0.000-0.034) ng/mL Total Protein (6.3-8.2) g/dL Albumin (3.5-5.0) g/dL - Radiology Data Radiology results: image reviewed (Chest x-ray shows no acute process) Disposition Clinical Impression: Chest pain Disposition: ADMITTED IP TO THIS HOSP Is patient prescribed a controlled substance at d/c from ED?: No Referrals: Dave Cruz DO [Primary Care Provider] - 1-2 days Decision Time: 08:22
[2020-06-04 07:36] LABS: Basophils # (A) 0.1 k/uL (0-0.2); Basophils % (A) 1 %; Eosinophils # (A) 0.1 k/uL (0-0.7); Eosinophils % (A) 2 %; HCT 50.4 % (39.0-53.0); HGB 17.5 gm/dL (13.0-17.5); Lymphocytes % (A) 30 %; MCH 30.3 pg (25.0-35.0); MCHC 34.6 g/dL (31.0-37.0); MCV 87.5 fL (80.0-100.0); Mean Platelet Volume 6.8; Monocytes # (A) 0.3 k/uL (0-1.0); Monocytes % (A) 5 %; Neutrophils # (A) 4.1 k/uL (1.3-7.7); Neutrophils % (A) 62 %; Platelet Count 218 k/uL (150-450); RBC 5.76 m/uL (4.30-5.90); RDW 13.2 % (11.5-15.5); WBC 6.7 k/uL (3.8-10.6)
[2020-06-04 07:46] LABS: ALT 104 U/L (4-49); AST 78 U/L (17-59); African American GFR (CKD) >90 (>60 ml/min/1.73 sqM); Albumin 4.5 g/dL (3.5-5.0); Alkaline Phosphatase 125 U/L (38-126); Anion Gap 10 mmol/L; Blood Urea Nitrogen 21 mg/dL (9-20); Calcium 9.3 mg/dL (8.4-10.2); Carbon Dioxide 22 mmol/L (22-30); Chloride 107 mmol/L (98-107); Glucose 148 mg/dL (74-99); Magnesium 1.8 mg/dL (1.6-2.3); Non-African American GFR(CKD) >90 (>60 ml/min/1.73 sqM); Sodium 139 mmol/L (137-145); Total Bilirubin 0.8 mg/dL (0.2-1.3)
--- NOTE | 2020-06-04 07:56 | XR ---
EXAMINATION TYPE: XR chest 2V DATE OF EXAM: 06/04/2020 COMPARISON: Chest x-ray February 19, 2016. HISTORY: Chest pain. TECHNIQUE: Frontal and lateral views of the chest are obtained. FINDINGS: Overlying EKG leads. There is no no suspicious focal air space opacity, pleural effusion, o r pneumothorax seen. The cardiac silhouette size remains within normal limits. Multilevel spurring i n the lower thoracic spine.. IMPRESSION: No acute cardiopulmonary process. No significant change from prior.
[2020-06-04 07:59] LABS: D-Dimer 0.35 mg/L FEU (<0.60); Partial Thromboplastin Time 24.3 sec (22.0-30.0); Prothrombin Time 10.6 sec (9.0-12.0)
[2020-06-04] MEDS ORDERED: NITROGLYCERIN SL TABS 0.4 MG TAB SUBLINGUAL PRN (08:22)
--- NOTE | 2020-06-04 10:21 | P.CRDCN ---
History of Present Illness Consult date: 06/04/20 History of present illness: This is a 50-year-old gentleman with history of hypertensive coronary vascular disease being treated with Cozaar, came to the hospital with complaints of chest pain and tingling and numbness in the arms. He was at work when this happened this morning. The pain was across the chest. The tingling and numbness is mostly in the fingers and arms and also somewhat at all over the body. Patient was treated with Nitropaste in the emergency room. At the time of my examination patient is completely free of any symptoms. His EKG did not reveal any acute changes. Cardiac enzymes are being done. Patient had similar symptoms in about 2016. Patient had a cardiac catheterization at the time and was found to have normal coronary arteries. He was last seen by Dr. Lunsford in 2017. He has been stable over the last several years. 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 His father had a ischemic heart disease in his 50s. Mother also had stents in her 70s. His lungs are clear. Heart is regular. At this time, His pains appear to be atypical. We'll continue to follow his cardiac enzymes. We'll get an echocardiogram. If the enzymes are negative, may proceed with a stress test tomorrow. If the enzymes are positive, may consider cardiac cat heterization Review of Systems As per the chart Past Medical History Past Medical History: Chest Pain / Angina, GERD/Reflux, GI Bleed, Hypertension, Osteoarthritis (OA) Additional Past Medical History / Comment(s): Chronic low back pain Last Myocardial Infarction Date:: 02/19/16 History of Any Multi-Drug Resistant Organisms: None Reported Past Surgical History: Appendectomy, Bariatric Surgery, Cholecystectomy, Heart Catheterization, Tonsillectomy Additional Past Surgical History / Comment(s): 02/20/16 cardiac cath-normal, lap band, colonoscopy Past Anesthesia/Blood Transfusion Reactions: Previous Problems w/ Anesthesia Additional Past Anesthesia/Blood Transfusion Reaction / Comment(s): COMBATIVE WHEN COMING OUT OF ANESTHESIA. Smoking Status: Never smoker - Past Family History Mother Additional Family Medical History / Comment(s): Crohns. Mother is living. Father Family Medical History: Congestive Heart Failure (CHF) Additional Family Medical History / Comment(s): Father at the age of 73 yrs from chf. He had several MIs with his first IL occuring at age 45yrs. Dad's 7 brothers had CHF as well. Medications and Allergies Home Medications Medication Instructions Recorded Confirmed Type Losartan Potassium 50 mg PO DAILY 11/19/16 06/04/20 History Ibuprofen [Motrin] 800 mg PO DAILY 04/14/19 06/04/20 History Cholecalciferol (Vitamin D3) 125 mcg PO DAILY 06/04/20 06/04/20 History [Vitamin D3 (5000 Iu)] Cider Vinegar [Apple Cider Vinegar] 300 mg PO DAILY 06/04/20 06/04/20 History Multivit-Min/FA/Lycopen/Lutein 1 tab PO DAILY 06/04/20 06/04/20 History [Centrum Silver Men Tablet] Turmeric Root Extract [Turmeric] 500 mg PO DAILY 06/04/20 06/04/20 History traMADol HCL 50 mg PO Q8H PRN 06/04/20 06/04/20 History Allergies Allergy/AdvReac Type Severity Reaction Status Date / Time No Known Allergies Allergy Verified 06/04/20 07:49 Physical Exam Vitals: Vital Signs Temp Pulse Resp BP Pulse Ox 06/04/20 08:45 98 F 105 H 20 127/81 94 L 06/04/20 08:07 103 H 20 130/90 93 L 06/04/20 07:06 98.3 F 104 H 18 168/98 98 Intake and Output 06/03/20 06/04/20 06/04/20 22:59 06:59 14:59 Other: Weight 131.542 kg GENERAL EXAM: Patient is alert and oriented and doesn't appear to be in any acute distress HEENT: Normocephalic. Normal reaction of pupils, equal size, normal range of extraocular motion. No erythema or exudates in the throat. NECK: No masses, no nuchal rigidity. CHEST: No chest wall deformity. LUNGS: Equal air entry with no crackles or wheeze. HEART: S1 and S2 normal with no audible mumurs or gallops. Regular rhythm, femorals equal on both sides.. ABDOMEN: No hepatosplenomegaly, normal bowel sounds, no guarding or rigidity. SKIN: No rashes CENTRAL NERVOUS SYSTEM: No focal deficits. EXTREMITIES: No cyanosis, clubbing or edema. Results 06/04/20 07:21 06/04/20 07:21 Cardiac Enzymes 06/04/20 06/04/20 Range/Units 07:21 07:21 AST 78 H (17-59) U/L Troponin I <0.012 (0.000-0.034) ng/mL Coagulation 06/04/20 Range/Units 07:21 PT 10.6 (9.0-12.0) sec APTT 24.3 (22.0-30.0) sec CBC 06/04/20 Range/Units 07:21 WBC 6.7 (3.8-10.6) k/uL RBC 5.76 (4.30-5.90) m/uL Hgb 17.5 (13.0-17.5) gm/dL Hct 50.4 (39.0-53.0) % Plt Count 218 (150-450) k/uL Comprehensive Metabolic Panel 06/04/20 Range/Units 07:21 Sodium 139 (137-145) mmol/L Potassium 4.0 (3.5-5.1) mmol/L Chloride 107 (98-107) mmol/L Carbon Dioxide 22 (22-30) mmol/L BUN 21 H (9-20) mg/dL Creatinine 0.91 (0.66-1.25) mg/dL Glucose 148 H (74-99) mg/dL Calcium 9.3 (8.4-10.2) mg/dL AST 78 H (17-59) U/L ALT 104 H (4-49) U/L Alkaline Phosphatase 125 (38-126) U/L Total Protein 8.0 (6.3-8.2) g/dL Albumin 4.5 (3.5-5.0) g/dL Current Medications Generic Name Dose Route Start Last Admin Trade Name Freq PRN Reason Stop Dose Admin Aspirin 325 mg 06/05/20 09:00 Aspirin 325 Mg Tab PO DAILY JIM Nitroglycerin 0.4 mg 06/04/20 08:22 Nitroglycerin Sl Tabs 0.4 Mg Tab SUBLINGUAL Q5M PRN Chest Pain Nitroglycerin 1 inch 06/04/20 12:00 Nitroglycerin Oint 1 Inch/Gm Packet TOPICAL Q6HR [facility] Sodium Chloride 10 ml 06/04/20 09:00 06/04/20 09:28 Sodium Chloride 0.9% Flush 10 Ml Syringe IV 10 ml BID [facility] Administration Intake and Output 06/03/20 06/04/20 06/04/20 22:59 06:59 14:59 Other: Weight 131.542 kg Patient Weight 06/05/20 06:59 Weight 131.542 kg 06/04/20 07:21 06/04/20 07:21 EKG Interpretations (text) Sinus rhythm Assessment and Plan (1) Essential hypertension Current Visit: Yes Status: Acute Code(s): I10 - ESSENTIAL (PRIMARY) HYPERTENSION SNOMED Code(s): 55631750 (2) Chest pain Current Visit: Yes Status: Acute Code(s): R07.9 - CHEST PAIN, UNSPECIFIED SNOMED Code(s): 59506241 (3) Obesity Current Visit: Yes Status: Acute Code(s): E66.9 - OBESITY, UNSPECIFIED SNOMED Code(s): 088685242 (4) Family history of ischemic heart disease Current Visit: Yes Status: Acute Code(s): Z82.49 - FAMILY HX OF ISCHEM HEART DIS AND OTH DIS OF THE CIRC SYS SNOMED Code(s): 988100943 Plan: Continue monitoring him. We'll follow his cardiac enzymes studies. Echocardiogram. If enzymes are normal and echo findings are normal, we'll proceed with stress echocardiogram tomorrow.
[2020-06-04] MEDS ORDERED: traMADol 50 MG TAB PO PRN (10:55)
--- NOTE | 2020-06-04 12:02 | P.HPIM ---
History of Present Illness H&P Date: 06/04/20 Chief Complaint: Chest pain, palpitations This a 50-year-old gentleman with past medical history of hypertension, prior cardiac cath reporting normal coronary arteries, gastroesophageal reflux disease, osteoarthritis, obesity and multiple other medical issues, presented to the ER with complaints of midsternal chest pain radiating from left to right with finger tips of bilateral hands tingling, but denies radiation down the arms. Reports diaphoresis ,palpitations but denies cough, congestion, shortness of breath. Denies nausea vomiting or diarrhea. Denies abdominal pain. Reports onset occurred after eating breakfast, arrived at work was just talking with coworkers, nonstress. Received Nitropaste in the ER. EKG reported sinus tachycardia. Troponins negative 1 .Chest x-ray reporting no acute cardiopulmonary process, no significant change from prior. Afebrile, maintaining O2 sats of high 90s on room air on admission, currently maintaining O2 sats of 93% on 2 L nasal cannula. Hematology, coagulation, chemistry panels within normal limits with the exception of BUN 21, creatinine 0.91, glucose 148 in mild elevation of LFTs AST 78, ALT 104. Coronavirus not detected. Review of Systems ROS Statement: Those systems with pertinent positive or pertinent negative responses have been documented in the HPI. ROS Other: All systems not noted in ROS Statement are negative. Past Medical History Past Medical History: Chest Pain / Angina, GERD/Reflux, GI Bleed, Hypertension, Osteoarthritis (OA) Additional Past Medical History / Comment(s): Chronic low back pain Last Myocardial Infarction Date:: 02/19/16 History of Any Multi-Drug Resistant Organisms: None Reported Past Surgical History: Appendectomy, Bariatric Surgery, Cholecystectomy, Heart Catheterization, Tonsillectomy Additional Past Surgical History / Comment(s): 02/20/16 cardiac cath-normal, lap band, colonoscopy Past Anesthesia/Blood Transfusion Reactions: Previous Problems w/ Anesthesia Additional Past Anesthesia/Blood Transfusion Reaction / Comment(s): COMBATIVE WHEN COMING OUT OF ANESTHESIA. Smoking Status: Never smoker - Past Family History Mother Additional Family Medical History / Comment(s): Crohns. Mother is living. Father Family Medical History: Congestive Heart Failure (CHF) Additional Family Medical History / Comment(s): Father at the age of 73 yrs from chf. He had several MIs with his first MT occuring at age 45yrs. Dad's 7 brothers had CHF as well. Medications and Allergies Home Medications Medication Instructions Recorded Confirmed Type Losartan Potassium 50 mg PO DAILY 11/19/16 06/04/20 History Ibuprofen [Motrin] 800 mg PO DAILY 04/14/19 06/04/20 History Cholecalciferol (Vitamin D3) 125 mcg PO DAILY 06/04/20 06/04/20 History [Vitamin D3 (5000 Iu)] Cider Vinegar [Apple Cider Vinegar] 300 mg PO DAILY 06/04/20 06/04/20 History Multivit-Min/FA/Lycopen/Lutein 1 tab PO DAILY 06/04/20 06/04/20 History [Centrum Silver Men Tablet] Turmeric Root Extract [Turmeric] 500 mg PO DAILY 06/04/20 06/04/20 History traMADol HCL 50 mg PO Q8H PRN 06/04/20 06/04/20 History Allergies Allergy/AdvReac Type Severity Reaction Status Date / Time No Known Allergies Allergy Verified 06/04/20 07:49 Physical Exam Vitals: Vital Signs Temp Pulse Resp BP Pulse Ox 06/04/20 08:45 98 F 105 H 20 127/81 94 L 06/04/20 08:07 103 H 20 130/90 93 L 06/04/20 07:06 98.3 F 104 H 18 168/98 98 Intake and Output 06/03/20 06/04/20 06/04/20 22:59 06:59 14:59 Other: Weight 131.542 kg PHYSICAL EXAM: VITAL SIGNS: As above GENERAL: Sitting up in stretcher, no acute distress HEENT: Conjunctivae normal. eyes normal. NECK: No JVD. No thyroid enlargement. No LNs CARDIOVASCULAR: S1, S2 regular.No murmur RESPIRATION: Breath sounds diminished in the bases. No rhonchi or crackles. No bronchial breathing. ABDOMEN: Soft, nontender . No guarding. no masses palpable. No ascites, No hepatosplenomegaly.Bowel sounds heard. LEGS: No edema. no swelling PSYCHIATRY: Alert and oriented X3, mood and affect normal. NERVOUS SYSTEM: Cranial N 2-12 grossly normal. Moves all 4 limbs. No focal deficits. Strength and sensation grossly intact.. Skin: Warm and dry, no rash Lymphatic system. No LN neck axilla. Results CBC & Chem 7: 06/04/20 07:21 06/04/20 07:21 Labs: Abnormal Lab Results - Last 24 Hours (Table) 06/04/20 Range/Units 07:21 BUN 21 H (9-20) mg/dL Glucose 148 H (74-99) mg/dL AST 78 H (17-59) U/L ALT 104 H (4-49) U/L Thrombosis Risk Factor Assmnt - Choose All That Apply Any of the Below Risk Factors Present?: Yes Each Factor Represents 1 point: Age 41-60 years, Obesity (BMI >25) Other Risk Factors: No Other congenital or acquired thrombophilia - If yes, enter type in comment: No Thrombosis Risk Factor Assessment Total Risk Factor Score: 2 Thrombosis Risk Factor Assessment Level: Low Risk Assessment and Plan Assessment: Acute chest pain, rule out ACS, in a patient with prior cardiac cath reporting normal coronaries, family history of CAD. Hypertension Morbid obesity, BMI 41.6 Gastroesophageal reflux disease Plan: Continue on current medication regime ,monitoring and symptomatic treatment. Serial enzymes in progress. Echocardiogram pending. Cardiology recommendations noted and appreciated with potential stress echo tomorrow. The impression and plan of care has been dictated as directed. : I performed a history and examination of this patient, discussed the same with the dictator. I agree with the dictator's note ,documented as a scribe. Any additional findings or plans will be noted.
[2020-06-04] MEDS: NITROGLYCERIN OINT 1 INCH/GM PACKET TOPICAL SCH ×3 (12:28→23:26)
[2020-06-04] MEDS: LOSARTAN 50 MG TAB PO SCH (12:29)
[2020-06-04 14:56] VITALS: RESP 16
[2020-06-04] MEDS ORDERED: ZOLPIDEM 5 MG TAB PO SCH (21:00)
[2020-06-05] MEDS: NITROGLYCERIN OINT 1 INCH/GM PACKET TOPICAL SCH (05:17)
[2020-06-05] MEDS: LOSARTAN 50 MG TAB PO SCH (08:21)
[2020-06-05] MEDS ORDERED: CHOLECALCIFEROL 25 MCG (1000 IU) TABLET PO SCH (09:00)
[2020-06-05] MEDS ORDERED: MULTIVITAMINS, THERA 1 EACH TAB PO SCH (09:00)
[2020-06-05] MEDS ORDERED: ASPIRIN 325 MG TAB PO SCH (09:00)
--- NOTE | 2020-06-05 09:15 | ECHOF ---
Referral Reason:Chest pain MEASUREMENTS -------- HEIGHT: 177.8 cm WEIGHT: 131.5 kg BP: 127/81 IVSd: 1.9 cm (0.6 - 1.1) LVIDd: 3.9 cm (3.9 - 5.3) LVPWd: 1.9 cm (0.6 - 1.1) IVSs: 2.4 cm LVIDs: 2.2 cm LVPWs: 2.2 cm LAESV Index (A-L): 14.66 ml/m Ao Diam: 3.7 cm (2.0 - 3.7) AV Cusp: 2.5 cm (1.5 - 2.6) MV EXCURSION: 17.189 mm (> 18.000) MV EF SLOPE: 80 mm/s (70 - 150) EPSS: 0.4 cm MV E Chuy: 0.72 m/s MV DecT: 174 ms MV A Chuy: 0.61 m/s MV E/A Ratio: 1.18 RAP: 5.00 mmHg RVSP: 16.96 mmHg FINDINGS -------- Sinus rhythm. This was a technically difficult study with suboptimal views. The left ventricular size is normal. There is severe concentric left ventricular hypertrophy. Ove rall left ventricular systolic function is normal with, an EF between 55 - 60 %. The diastolic fill ing pattern is normal for the age of the patient 11.53. The right ventricle is normal in size. Normal LA size by volume 22+/-6 ml/m2. The right atrial size is normal. 5.0mg of Lumason was utilized for enhancement of images Interatrial and interventricular septum intact. There is no evidence of aortic regurgitation. There is no evidence of aortic stenosis. No mitral regurgitation. Mild tricuspid regurgitation present. There is no evidence of pulmonary hypertension. The right v entricular systolic pressure, as measured by Doppler, is 16.96mmHg. There is no pulmonic regurgitation present. The aortic root size is normal. IVC Not well visulized. There is no pericardial effusion. CONCLUSIONS -------- 1. The left ventricular size is normal. 2. There is severe concentric left ventricular hypertrophy. 3. Overall left ventricular systolic function is normal with, an EF between 55 - 60 %. 4. The diastolic filling pattern is normal for the age of the patient 11.53 5. Mild tricuspid regurgitation present. CLINIC SUPERVISOR: Radha Saunders RDCS
[2020-06-05 09:23] LABS: Basophils # (A) 0.03 X 10*3/uL (0.00-0.10); Basophils % (A) 0.4 %; Eosinophils # (A) 0.18 X 10*3/uL (0.04-0.35); Eosinophils % (A) 2.3 %; HCT 48.8 % (39.6-50.0); HGB 15.9 g/dL (13.0-17.0); Lymphocytes # (A) 2.49 X 10*3/uL (0.90-5.00); Lymphocytes % (A) 31.1 %; MCHC 32.6 g/dL (32.0-37.0); MCV 88.9 fL (80.0-97.0); Mean Platelet Volume 9.8 fL (9.5-12.2); Monocytes # (A) 0.62 X 10*3/uL (0.20-1.00); Monocytes % (A) 7.8 %; Neutrophils # (A) 4.65 X 10*3/uL (1.80-7.70); Platelet Count 256 X 10*3/uL (140-440); RBC 5.49 X 10*6/uL (4.40-5.60); RDW 12.4 % (11.5-14.5)
[2020-06-05 09:45] LABS: African American GFR (CKD) 116.6 (60.0-200.0); Anion Gap 5.8 mmol/L (4.00-12.00); Calcium 9.2 mg/dL (8.7-10.3); Carbon Dioxide 29.2 mmol/L (21.6-31.8); Chol/HDL Ratio 5.79; LDL Cholesterol,Calculated 95.4 mg/dL (0.0-131.0); Non-African American GFR(CKD) 100.6 (60.0-200.0); Potassium 4.9 mmol/L (3.5-5.5); VLDL Calculation 67.6 mg/dL (5.00-40.00)
--- NOTE | 2020-06-05 10:34 | P.PN ---
Subjective Progress Note Date: 06/05/20 HISTORY OF PRESENT ILLNESS: Patient examined this morning. He denies chest pain or pressure. Denies shortness of breath. Echocardiogram completed revealing ejection fraction 55-60% with mild tricuspid regurgitation. PHYSICAL EXAM: VITAL SIGNS: Reviewed. GENERAL: Well-developed in no acute distress. NECK: Supple. No JVD or thyromegaly LUNGS: Respirations even and unlabored. Lungs essentially clear to auscultation bilaterally. HEART: Regular rate and rhythm. S1 and S2 heard. EXTREMITIES: Normal range of motion. No clubbing or cyanosis. Peripheral pul ses intact. No lower extremity edema ASSESSMENT: Chest pain, troponin negative 3, acute coronary syndrome ruled out Hypertension Obesity: BMI 41.6 Family history of ischemic heart disease PLAN: Patient to undergo stress echocardiogram today. If stress test is negative, patient may be discharged home today from a cardiac perspective and follow up on an outpatient basis. Nurse practitioner note has been reviewed by physician. Signing provider agrees with the documented findings, assessment, and plan of care. Objective - Vital Signs Vital signs: Vital Signs Temp 97.9 F 06/05/20 02:35 Pulse 74 06/05/20 02:35 Resp 16 06/04/20 14:00 BP 133/75 06/05/20 02:35 Pulse Ox 94 L 06/05/20 02:35 Intake & Output 06/04/20 06/05/20 06/05/20 18:59 06:59 18:59 Intake Total 1140 Balance 1140 Weight 131.542 kg Intake: Oral 1140 Other: Voiding Method Toilet # Voids 2 - Labs CBC & Chem 7: 06/05/20 04:40 06/05/20 04:40 Labs: Abnormal Lab Results - Last 24 Hours (Table) 06/05/20 Range/Units 04:40 Glucose 116 H (70-110) mg/dL Triglycerides 338.0 H (0.0-149.0) mg/dL VLDL Cholesterol, Calc 67.60 H (5.00-40.00) mg/dL HDL Cholesterol 34.0 L (40.0-60.0) mg/dL
--- NOTE | 2020-06-05 11:24 | P.STRESS ---
- Stress Test Note Stress Test Results/Findings: Exam Performed: stress echo exercise with con Exam Date: 06/05/20 Reason for Exam: CP Height: 5 ft 10 in Weight: 131.54 kg Protocol: STRESS ECHO W/ LUMASON Stage: 3 Duration of Exercise: 8:45 Resting Heart Rate: 77 Resting Blood Pressure: 114/68 Maximum Achieved Heart Rate: 148 Maximum Achieved Blood Pressure: 191/87 85% PMHR: 146 100% PMHR: 172 METS: 10.3 Technologist Comment: LUMASON GIVEN Stress Test Results/Findings: This is a 50-year-old gentleman being evaluated for symptoms of chest pain and shortness of breath. Patient has history of hypertension, hypercholesteremia, and family history of ischemic heart disease. Stress data: Baseline EKG showed sinus rhythm with normal CO interval and QRS duration. Blood pressure at rest is 114/68 with pulse rate of 77. Patient walked on the Thierry protocol for 8 minutes and 45 seconds achieving a maximal heart rate of 148 with blood pressure 191/87. EKGs taken during and after exercise did not reveal any significant changes from the baseline. Patient did not experience any chest pain. Echo data: Baseline echo images show normal wall motion and thickening. Exercise echo images showed augmentation of wall motion and thickening in all the segments. Final impression: #1. Negative stress test #2. Negative stress echo
--- NOTE | 2020-06-05 12:57 | ECHOS ---
Stress Test Results/Findings: Exam Performed: stress echo exercise with con Exam Date: 06/05/20 Reason for Exam: CP Height: 5 ft 10 in Weight: 131.54 kg Protocol: STRESS ECHO W/ LUMASON Stage: 3 Duration of Exercise: 8:45 Resting Heart Rate: 77 Resting Blood Pressure: 114/68 Maximum Achieved Heart Rate: 148 Maximum Achieved Blood Pressure: 191/87 85% PMHR: 146 100% PMHR: 172 METS: 10.3 Technologist Comment: LUMASON GIVEN Stress Test Results/Findings: This is a 50-year-old gentleman being evaluated for symptoms of chest pain and shortness of breath. Patient has history of hypertension, hypercholesteremia, and family history of ischemic heart disease. Stress data: Baseline EKG showed sinus rhythm with normal SC interval and QRS duration. Blood pressure at rest is 114/68 with pulse rate of 77. Patient walked on the Thierry protocol for 8 minutes and 45 seconds achieving a maximal heart rate of 148 with blood pressure 191/87. EKGs taken during and after exercise did not reveal any significant changes from the baseline. Patient did not experience any chest pain. Echo data: Baseline echo images show normal wall motion and thickening. Exercise echo images showed augmentation of wall motion and thickening in all the segments. Final impression: #1. Negative stress test #2. Negative stress echo MTDD
[2020-06-05 14:01] VITALS: BP 133/84; PULSE 76; TEMP 97.7
--- NOTE | 2020-06-05 15:33 | P.DS ---
Providers Date of admission: 06/04/20 08:23 Expected date of discharge: 06/05/20 Attending physician: Dave Cruz Consults: 06/04/20 08:23 Consult Physician Urgent Consulting Provider: Travon Tiwari Consult Reason/Comments: cp Do you want consulting provider notified?: Yes Primary care physician: Dave Cruz Hospital Course: Final Diagnoses: Acute chest pain, in a patient with prior cardiac cath reporting normal coronaries, family history of CAD. Status post stress test and stress echo verbally reported negative. Hypertension Morbid obesity, BMI 41.6 Gastroesophageal reflux disease Hypercholesterolemia, hyperlipidemia Hospital course:This a 50-year-old gentleman with past medical history of hypertension, prior cardiac cath reporting normal coronary arteries, christin roesophageal reflux disease, osteoarthritis, obesity and multiple other medical issues, presented to the ER with complaints of midsternal chest pain radiating from left to right with finger tips of bilateral hands tingling, but denies radiation down the arms. Reports diaphoresis ,palpitations but denies cough, congestion, shortness of breath. Denies nausea vomiting or diarrhea. Denies abdominal pain. Reports onset occurred after eating breakfast, arrived at work was just talking with coworkers, nonstress. Received Nitropaste in the ER. EKG reported sinus tachycardia. Troponins negative 1 .Chest x-ray reporting no acute cardiopulmonary process, no significant change from prior. Afebrile, maintaining O2 sats of high 90s on room air on admission, currently maintaining O2 sats of 93% on 2 L nasal cannula. Hematology, coagulation, chemistry panels within normal limits with the exception of BUN 21, creatinine 0.91, glucose 148 in mild elevation of LFTs AST 78, ALT 104. Coronavirus not detected. Evaluated by cardiology, underwent stress echo. I'll stress test and stress echo reported as negative. Cleared by cardiology for discharge. Triglycerides 338, cholesterol 197, LDL 95.4. ASCVD score 5.1, in a patient with family history of CAD, obesity, BMI 131.54, statin initiated. Hemoglobin A1c ordered with results to be faxed to PCPs office. The impression and plan of care has been dictated as directed. : I performed a history and examination of this patient, discussed the same with the dictator. I agree with the dictator's note ,documented as a scribe. Any additional findings or plans will be noted. Patient Condition at Discharge: Stable Plan - Discharge Summary Discharge Rx Participant: No New Discharge Prescriptions: New Atorvastatin [Lipitor] 40 mg PO HS #30 tab Continue Losartan Potassium 50 mg PO DAILY Ibuprofen [Motrin] 800 mg PO DAILY traMADol HCL 50 mg PO Q8H PRN PRN Reason: Pain Turmeric Root Extract [Turmeric] 500 mg PO DAILY Multivit-Min/FA/Lycopen/Lutein [Centrum Silver Men Tablet] 1 tab PO DAILY Cholecalciferol (Vitamin D3) [Vitamin D3 (5000 Iu)] 125 mcg PO DAILY Cider Vinegar [Apple Cider Vinegar] 300 mg PO DAILY Discharge Medication List Losartan Potassium 50 mg PO DAILY 11/19/16 [History] Ibuprofen [Motrin] 800 mg PO DAILY 04/14/19 [History] Cholecalciferol (Vitamin D3) [Vitamin D3 (5000 Iu)] 125 mcg PO DAILY 06/04/20 [History] Cider Vinegar [Apple Cider Vinegar] 300 mg PO DAILY 06/04/20 [History] Multivit-Min/FA/Lycopen/Lutein [Centrum Silver Men Tablet] 1 tab PO DAILY 06/04/20 [History] Turmeric Root Extract [Turmeric] 500 mg PO DAILY 06/04/20 [History] traMADol HCL 50 mg PO Q8H PRN 06/04/20 [History] Atorvastatin [Lipitor] 40 mg PO HS #30 tab 06/05/20 [Rx] Follow up Appointment(s)/Referral(s): Dave Cruz DO [Primary Care Provider] - 3 Days Lia Marquez MD [STAFF PHYSICIAN] - 1 Week Patient Instructions/Handouts: Chest Pain (DC) Activity/Diet/Wound Care/Special Instructions: Follow up with Cardiology in one week. Hemoglobin A1c results to be faxed to PCP, Dr. Cruz Discharge Disposition: HOME SELF-CARE
[2020-06-05 15:54] LABS: Hemoglobin A1C 6.3 % (4.0-6.0)
[2020-06-05] MEDS ORDERED: ATORVASTATIN 40 MG TAB PO SCH (21:00)
== END 2020-06-05 12:40 | disposition home or self-care (01) ==
LOC: EC 07:02 → 6NMEDSUR 08:23
PROVIDERS: ADMIT Family Medicine; ATTEND Family Medicine
DX: R07.89 Other chest pain (principal); E78.00 Pure hypercholesterolemia, unspecified; E78.5 Hyperlipidemia, unspecified; I36.1 Nonrheumatic tricuspid (valve) insufficiency; R00.2 Palpitations; R79.89 Other specified abnormal findings of blood chemistry; I10 Essential (primary) hypertension; K21.9 Gastro-esophageal reflux disease without esophagitis; M19.90 Unspecified osteoarthritis, unspecified site; G89.29 Other chronic pain; M54.5 Low back pain; E66.01 Morbid (severe) obesity due to excess calories; Z68.41 Body mass index [BMI] 40.0-44.9, adult; R42 Dizziness and giddiness; R06.02 Shortness of breath; R61 Generalized hyperhidrosis; R20.0 Anesthesia of skin; R20.2 Paresthesia of skin; R00.0 Tachycardia, unspecified; Z20.828 Contact with and (suspected) exposure to other viral communicable diseases; Z79.1 Long term (current) use of non-steroidal anti-inflammatories (NSAID); Z79.891 Long term (current) use of opiate analgesic; Z79.899 Other long term (current) drug therapy; I25.2 Old myocardial infarction; Z87.19 Personal history of other diseases of the digestive system; Z90.49 Acquired absence of other specified parts of digestive tract; Z98.84 Bariatric surgery status; Z82.49 Family history of ischemic heart disease and other diseases of the circulatory system; Z83.79 Family history of other diseases of the digestive system
CPT/HCPCS: 93005 ×2; 99285; 36415; 94760; 93306; 93351; 85379; 80061; 80053; 80048; 83735; 84484; 85025 ×2; 85610; 85730; 83036; 87635; 71046; G0378 ×2; Q9950 ×2

== ENCOUNTER 2020-11-16 01:00 | Emergency (ER) | payer BC ==
[2020-11-16 01:05] VITALS: RESP 18
[2020-11-16] MEDS ORDERED: KETOROLAC 15 MG/ML 1 ML VIAL IVP STA (01:08)
[2020-11-16] MEDS ORDERED: SODIUM CHLORIDE 0.9% 1,000 ML IV STA (01:08)
[2020-11-16 02:13] LABS: Basophils % (A) 0 %; Eosinophils # (A) 0.2 k/uL (0-0.7); Eosinophils % (A) 2 %; HCT 43.9 % (39.0-53.0); HGB 15.5 gm/dL (13.0-17.5); Lymphocytes # (A) 2.3 k/uL (1.0-4.8); Lymphocytes % (A) 31 %; MCH 30.6 pg (25.0-35.0); MCHC 35.3 g/dL (31.0-37.0); MCV 86.8 fL (80.0-100.0); Monocytes # (A) 0.4 k/uL (0-1.0); Monocytes % (A) 5 %; Neutrophils # (A) 4.6 k/uL (1.3-7.7); Neutrophils % (A) 61 %; Platelet Count 195 k/uL (150-450); RBC 5.06 m/uL (4.30-5.90); RDW 12.4 % (11.5-15.5); WBC 7.5 k/uL (3.8-10.6)
[2020-11-16 02:24] LABS: ALT 28 U/L (4-49); AST 24 U/L (17-59); African American GFR (CKD) >90 (>60 ml/min/1.73 sqM); Albumin 4.2 g/dL (3.5-5.0); Alkaline Phosphatase 117 U/L (38-126); Amylase 62 U/L (30-110); Anion Gap 8 mmol/L; Blood Urea Nitrogen 19 mg/dL (9-20); Calcium 9.1 mg/dL (8.4-10.2); Carbon Dioxide 24 mmol/L (22-30); Chloride 106 mmol/L (98-107); Glucose 112 mg/dL (74-99); Lipase 127 U/L (23-300); Non-African American GFR(CKD) >90 (>60 ml/min/1.73 sqM); Potassium 3.8 mmol/L (3.5-5.1); Sodium 138 mmol/L (137-145); Total Bilirubin 0.2 mg/dL (0.2-1.3); Total Protein 6.9 g/dL (6.3-8.2)
--- NOTE | 2020-11-16 02:26 | CT ---
EXAMINATION TYPE: CT abdomen pelvis wo con DATE OF EXAM: 11/16/2020 COMPARISON: 06/03/2017 HISTORY: right flank pain CT DLP: 2305 mGycm Automated exposure control for dose reduction was used. Images obtained from the diaphragm to the floor the pelvis without contrast. There is some minimal atelectasis left posterior lung base. There is no pleural effusion. Heart size is normal. There is no pericardial effusion. There is gastric sleeve at the gastroesophageal junction . Stomach is intact. The liver spleen pancreas appear intact. The bile ducts are not dilated. It is not clear if the gallb ladder is present. There are calcifications at the gallbladder fossa that could be surgical clips and or calcified gallstones. This is also present on old exam from 3 years ago. There is no adrenal mass . Kidneys show normal size and contour. There is no hydronephrosis. Ureters are not dilated. There is no retroperitoneal adenopathy. The bladder distends smoothly. There is no inguinal hernia. There is no evidence of a pelvic mass. There is no free fluid in the pelvis. There is minimal left side prosta te calcification. Appendix is not seen. There is no sign of thickened appendix. There is no mesenteric edema. There is no ascites or free air. There is no sign of a bowel obstruction. The lumbar vertebra have normal alignment. There is no compression fracture. There is degenerative sp urring of the endplates. There is bilateral moderate hypertrophic osteoarthritis in the hip joints. T here is posterior calcified disc herniation at L4-5 with mild encroachment on the spinal canal. There is a mild relative spinal stenosis. IMPRESSION: Gastric bariatric surgery. No acute abnormality of the abdomen pelvis. No evidence of renal stone or obstruction. There is some spinal stenosis at L4-5 unchanged.
[2020-11-16] MEDS ORDERED: ACET/COD 300 MG/30 MG STARTER PACK 6 TAB BTL PO STA (02:47)
--- NOTE | 2020-11-16 02:51 | ED ---
Back Pain HPI - General Chief Complaint: Back Pain/Injury Stated Complaint: Back Pain Time Seen by Provider: 11/16/20 01:07 Source: patient, RN notes reviewed Limitations: no limitations - History of Present Illness Initial Comments: Patient is a 50-year-old male that presents to the emergency department complaining of right flank pain. He notes that he does have a history of kidney stones last one being in the 90s. He notes that he went to his chiropractor today and it became painful after his adjustment. He notes that the pain is constant with no relief even after at home medications. He was well-appearing well-hydrated 50-year-old male. He denied any chest pain shortness of breath headache nausea vomiting diarrhea constipation fever fatigue chills. - Related Data Home Medications Medication Instructions Recorded Confirmed Losartan Potassium 50 mg PO DAILY 11/19/16 06/04/20 Ibuprofen [Motrin] 800 mg PO DAILY 04/14/19 06/04/20 Cholecalciferol (Vitamin D3) 125 mcg PO DAILY 06/04/20 06/04/20 [Vitamin D3 (5000 Iu)] Cider Vinegar [Apple Cider Vinegar] 300 mg PO DAILY 06/04/20 06/04/20 Multivit-Min/FA/Lycopen/Lutein 1 tab PO DAILY 06/04/20 06/04/20 [Centrum Silver Men Tablet] Turmeric Root Extract [Turmeric] 500 mg PO DAILY 06/04/20 06/04/20 traMADol HCL 50 mg PO Q8H PRN 06/04/20 06/04/20 Previous Rx's Medication Instructions Recorded Atorvastatin [Lipitor] 40 mg PO HS #30 tab 06/05/20 Acetaminophen-Codeine 300-30mg 1 tab PO Q4H PRN #20 tablet 11/16/20 [Tylenol #3] Allergies Allergy/AdvReac Type Severity Reaction Status Date / Time No Known Allergies Allergy Verified 11/16/20 01:05 Review of Systems ROS Statement: Those systems with pertinent positive or pertinent negative responses have been documented in the HPI. ROS Other: All systems not noted in ROS Statement are negative. Past Medical History Past Medical History: Atrial Fibrillation, Chest Pain / Angina, GERD/Reflux, GI Bleed, Hypertension, Osteoarthritis (OA) Additional Past Medical History / Comment(s): Chronic low back pain, renal stones, Last Myocardial Infarction Date:: 02/19/16 History of Any Multi-Drug Resistant Organisms: None Reported Past Surgical History: Appendectomy, Bariatric Surgery, Cholecystectomy, Heart Catheterization, Tonsillectomy Additional Past Surgical History / Comment(s): 02/20/16 cardiac cath-normal, lap band, colonoscopy, Past Anesthesia/Blood Transfusion Reactions: Previous Problems w/ Anesthesia Additional Past Anesthesia/Blood Transfusion Reaction / Comment(s): COMBATIVE WHEN COMING OUT OF ANESTHESIA. Past Psychological History: No Psychological Hx Reported Smoking Status: Never smoker Past Alcohol Use History: Rare Past Drug Use History: None Reported - Past Family History Mother Additional Family Medical History / Comment(s): Crohns. Mother is living. Father Family Medical History: Congestive Heart Failure (CHF) Additional Family Medical History / Comment(s): Father at the age of 73 yrs from chf. He had several MIs with his first [place] occuring at age 45yrs. Dad's 7 brothers had CHF as well. General Exam Limitations: no limitations General appearance: alert, in no apparent distress Head exam: Present: atraumatic, normocephalic, normal inspection Eye exam: Present: normal appearance, PERRL, EOMI. Absent: scleral icterus, conjunctival injection, periorbital swelling Neck exam: Present: normal inspection Respiratory exam: Present: normal lung sounds bilaterally. Absent: respiratory distress, wheezes, rales, rhonchi, stridor Cardiovascular Exam: Present: regular rate, normal rhythm, normal heart sounds. Absent: systolic murmur, diastolic murmur, rubs, gallop, clicks GI/Abdominal exam: Present: soft, normal bowel sounds. Absent: distended, tenderness, guarding, rebound, rigid Extremities exam: Present: normal inspection, full ROM, normal capillary refill. Absent: tenderness, pedal edema, joint swelling, calf tenderness Back exam: Present: normal inspection, CVA tenderness (R) Neurological exam: Present: alert, oriented X3 Psychiatric exam: Present: normal affect, normal mood Skin exam: Present: warm, dry, intact, normal color. Absent: rash Course Vital Signs 11/16/20 01:01 Temperature 97.8 F Pulse Rate 91 Respiratory 18 Rate Blood Pressure 127/79 O2 Sat by Pulse 97 Oximetry Medical Decision Making - Medical Decision Making 50-year-old male complaining of right flank pain times one. Labs, CT the abdomen and pelvis, 15 mg of Toradol, 1 L normal saline ordered. Labs unremarkable. Computed tomography scan negative for any acute process. Patient states that he would like to go home and is agreeable to discharge with Tylenol threes. Case discussed with Dr. Renae, patient can discharge home. - Lab Data Result diagrams: 11/16/20 01:45 11/16/20 01:45 Lab Results 11/16/20 11/16/20 Range/Units 01:45 01:45 WBC 7.5 (3.8-10.6) k/uL RBC 5.06 (4.30-5.90) m/uL Hgb 15.5 (13.0-17.5) gm/dL Hct 43.9 (39.0-53.0) % MCV 86.8 (80.0-100.0) fL MCH 30.6 (25.0-35.0) pg MCHC 35.3 (31.0-37.0) g/dL RDW 12.4 (11.5-15.5) % Plt Count 195 (150-450) k/uL MPV 7.0 Neutrophils % 61 % Lymphocytes % 31 % Monocytes % 5 % Eosinophils % 2 % Basophils % 0 % Neutrophils # 4.6 (1.3-7.7) k/uL Lymphocytes # 2.3 (1.0-4.8) k/uL Monocytes # 0.4 (0-1.0) k/uL Eosinophils # 0.2 (0-0.7) k/uL Basophils # 0.0 (0-0.2) k/uL Sodium 138 (137-145) mmol/L Potassium 3.8 (3.5-5.1) mmol/L Chloride 106 (98-107) mmol/L Carbon Dioxide 24 (22-30) mmol/L Anion Gap 8 mmol/L BUN 19 (9-20) mg/dL Creatinine 0.63 L (0.66-1.25) mg/dL Est GFR (CKD-EPI)AfAm >90 (>60 ml/min/1.73 sqM) Est GFR (CKD-EPI)NonAf >90 (>60 ml/min/1.73 sqM) Glucose 112 H (74-99) mg/dL Calcium 9.1 (8.4-10.2) mg/dL Total Bilirubin 0.2 (0.2-1.3) mg/dL AST 24 (17-59) U/L ALT 28 (4-49) U/L Alkaline Phosphatase 117 (38-126) U/L Total Protein 6.9 (6.3-8.2) g/dL Albumin 4.2 (3.5-5.0) g/dL Amylase 62 (30-110) U/L Lipase 127 (23-300) U/L - Radiology Data Radiology results: report reviewed, image reviewed CT of the abdomen and pelvis: Gastric bariatric surgery. No acute abnormality of the abdomen pelvis. No evidence of renal stones or obstruction. There is some spinal stenosis at L4-L5 unchanged. Disposition Clinical Impression: Right flank pain Disposition: HOME SELF-CARE Condition: Stable Instructions (If sedation given, give patient instructions): Acute Low Back Pain (ED) Additional Instructions: Please return to the Emergency Department if symptoms worsen or any other concerns. Follow-up with primary care as soon as possible. Take pain medication as prescribed. Avoid any strenuous activity or exercise. Increase oral fluids. Prescriptions: Acetaminophen-Codeine 300-30mg [Tylenol #3] 1 tab PO Q4H PRN #20 tablet PRN Reason: pain Is patient prescribed a controlled substance at d/c from ED?: No Referrals: Dave Cruz DO [Primary Care Provider] - 1-2 days Time of Disposition: 02:51
[2020-11-16 02:52] LABS: Appearance,Urine Clear (Clear); Bilirubin,Urine Negative (Negative); Blood,Urine Small (Negative); Color,Urine Yellow; Glucose,Urine (UA) Negative (Negative); Ketones,Urine 2+ (Negative); Leukocyte Esterase,Urine Negative (Negative); Mucus,Urine Occasional /hpf; Nitrite,Urine Negative (Negative); PH, Urine 5.5 (5.0-8.0); Protein,Urine Trace (Negative); RBC,Urine 2 /hpf (0-5); Specific Gravity,Urine 1.028 (1.001-1.035); Squamous Epithelial Cell,Urine <1 /hpf (0-4); Urobilinogen,Urine <2.0 mg/dL (<2.0); WBC,Urine 1 /hpf (0-5)
[2020-11-16 03:46] VITALS: BP 132/82; PULSE 87; TEMP 98
== END 2020-11-16 03:45 | disposition home or self-care (01) ==
LOC: EC 01:00
DX: R10.9 Unspecified abdominal pain (principal); I10 Essential (primary) hypertension; I48.91 Unspecified atrial fibrillation; K21.9 Gastro-esophageal reflux disease without esophagitis; I25.2 Old myocardial infarction; Z87.442 Personal history of urinary calculi
CPT/HCPCS: 36415; 80053; 82150; 83690; 85025; 81001; 74176; 99284; 96374; 96361; J1885

== ENCOUNTER → 2021-05-13 | Outpatient (CLI) | payer BC ==
[2021-05-13 15:04] VITALS: BP 126/79; PULSE 72; RESP 18; TEMP 98.3; BMI 42.9
--- NOTE | 2021-05-14 09:55 | P.HPBAR ---
Bariatric H&P - History & Physicial H&P Date: 05/13/21 History & Physicial: Visit/CC: follow up Patient initial contact: Initial weight: Initial weight in pounds: Height: 5 ft 11 in Initial BMI: Last weight: Current weight: 139.706 kg Current weight in pounds: 308.00 Current BMI: 42.9 [place] body weight (based on NIH guidelines): 78.018 kg Excess body weight loss: The patient is a 51 year-old M who presents for Bariatric Assessment. Patient presents today for surgical consultation. He is requesting his LAP-BAND removed. Patient states his he'll was removed several years ago. He has complaints of abdominal pain later to his band. His band was placed proximally 15 years ago at [facility] [place]. Patient states he's had GERD with his LAP-BAND device. Past Medical History Past Medical History: Atrial Fibrillation, Chest Pain / Angina, GERD/Reflux, GI Bleed, Hypertension, Osteoarthritis (OA) Additional Past Medical History / Comment(s): Chronic low back pain, renal stones, Last Myocardial Infarction Date:: 02/19/16 History of Any Multi-Drug Resistant Organisms: None Reported Past Surgical History: Appendectomy, Bariatric Surgery, Cholecystectomy, Heart Catheterization, Tonsillectomy Additional Past Surgical History / Comment(s): 02/20/16 cardiac cath-normal, lap band, colonoscopy, Past Anesthesia/Blood Transfusion Reactions: Previous Problems w/ Anesthesia Additional Past Anesthesia/Blood Transfusion Reaction / Comm: COMBATIVE WHEN COMING OUT OF ANESTHESIA. Past Psychological History: No Psychological Hx Reported Additional Psychological History / Comment(s): Pt resides with his spouse. He is independent. Smoking Status: Never smoker Past Alcohol Use History: Rare Past Drug Use History: None Reported - Past Family History Mother Additional Family Medical History / Comment(s): Crohns. Mother is living. Father Family Medical History: Congestive Heart Failure (CHF) Additional Family Medical History / Comment(s): Father at the age of 73 yrs from chf. He had several MIs with his first [place] occuring at age 45yrs. Dad's 7 brothers had CHF as well. Surgical - Exam Vital Signs Temp Pulse Resp BP 98.3 F 72 18 126/79 05/13/21 14:51 05/13/21 14:51 05/13/21 14:51 05/13/21 14:51 - General well developed, well nourished, no distress - Eyes PERRL - ENT normal pinna - Neck no masses - Respiratory normal expansion - Cardiovascular Rhythm: regular - Abdomen Previous umbilical hernia repair Abdomen: soft, non tender Bariatric Assessment & Plan Plan: Patient requesting his LAP-BAND device to be removed due to abdominal pain. We will attempt to obtain insurance authorization. Bariatric Checklist Checklist: Plan: Checklist: EGD: 1. Hiatal hernia: 2. H. Pylori: HgbA1c: Vitamin D: Smoking: Never smoker Primary care physician referral: Dr Islas Psychiatry clearance: Cardiology clearance: Sleep study: Diet journal: VTE risk score: VTE risk level: Rehab needs at discharge:
== END ==
LOC: BARWHC3 14:41
PROVIDERS: ATTEND Surgery
DX: Z09 Encounter for follow-up examination after completed treatment for conditions other than malignant neoplasm (principal); R10.9 Unspecified abdominal pain; K21.9 Gastro-esophageal reflux disease without esophagitis; I48.91 Unspecified atrial fibrillation; I10 Essential (primary) hypertension; M19.90 Unspecified osteoarthritis, unspecified site; Z98.84 Bariatric surgery status
CPT/HCPCS: 99211

== ENCOUNTER 2021-10-31 08:58 | Day surgery (SDC) | payer BC ==
[2021-10-30 09:51] VITALS: BMI 40.4
[~2021-10-31 08:58] MED LIST changes: +LIDOCAINE 1% (10MG/ML) FOR IV START INTRADERMA PRN; -LIDOCAINE 1% 20 ML VIAL (10MG/ML) FOR IV START INTRADERMA PRN
[2021-10-31 09:58] VITALS: RESP 16; TEMP 97
[2021-10-31] MEDS ORDERED: PROPOFOL 10 MG/ML 20 ML VIAL IV ONE (10:54)
--- NOTE | 2021-10-31 10:56 | P.GSHP ---
History of Present Illness H&P Date: 10/31/21 Chief Complaint: GI bleed This a 51-year-old male presents today for GI bleed. Patient presents for colonoscopy. He states he's had some minimal off and on rectal bleeding Past Medical History Past Medical History: Atrial Fibrillation, Chest Pain / Angina, GERD/Reflux, GI Bleed, Hypertension, Osteoarthritis (OA) Additional Past Medical History / Comment(s): Chronic low back pain, renal stones, Last Myocardial Infarction Date:: 02/19/16 History of Any Multi-Drug Resistant Organisms: None Reported Past Surgical History: Appendectomy, Bariatric Surgery, Cholecystectomy, Heart Catheterization, Tonsillectomy Additional Past Surgical History / Comment(s): 02/20/16 cardiac cath-normal, lap band, colonoscopy, Past Anesthesia/Blood Transfusion Reactions: Previous Problems w/ Anesthesia Additional Past Anesthesia/Blood Transfusion Reaction / Comment(s): COMBATIVE WHEN COMING OUT OF ANESTHESIA. Smoking Status: Never smoker - Past Family History Mother Additional Family Medical History / Comment(s): Crohns. Mother is living. Father Family Medical History: Congestive Heart Failure (CHF) Additional Family Medical History / Comment(s): Father at the age of 73 yrs from chf. He had several MIs with his first PR occuring at age 45yrs. Dad's 7 brothers had CHF as well. Medications and Allergies Home Medications Medication Instructions Recorded Confirmed Type Losartan Potassium 50 mg PO DAILY 11/19/16 10/31/21 History Ibuprofen [Motrin] 800 mg PO DAILY 04/14/19 10/31/21 History Cholecalciferol (Vitamin D3) 125 mcg PO DAILY 06/04/20 10/31/21 History [Vitamin D3 (5000 Iu)] Cider Vinegar [Apple Cider Vinegar] 300 mg PO DAILY 06/04/20 10/31/21 History Multivit-Min/FA/Lycopen/Lutein 1 tab PO DAILY 06/04/20 10/31/21 History [Centrum Silver Men Tablet] Turmeric Root Extract [Turmeric] 500 mg PO DAILY 06/04/20 10/31/21 History Metyrapone [Metopirone] 250 mg PO DAILY 05/14/21 10/31/21 History amLODIPine [Norvasc] 5 mg PO DAILY 05/14/21 10/31/21 History Allergies Allergy/AdvReac Type Severity Reaction Status Date / Time No Known Allergies Allergy Verified 10/31/21 09:58 Surgical - Exam Vital Signs Temp Pulse Resp BP Pulse Ox 97 F L 62 16 160/82 94 L 10/31/21 09:52 10/31/21 09:52 10/31/21 09:52 10/31/21 09:52 10/31/21 09:52 - General well developed, well nourished, no distress - Eyes PERRL - ENT normal pinna - Neck no masses - Respiratory normal expansion - Cardiovascular Rhythm: regular - Abdomen Abdomen: soft, non tender Assessment and Plan Assessment: GI bleed. We'll perform colonoscopy.
--- NOTE | 2021-10-31 11:10 | P.OP ---
Date of Procedure: 10/31/21 Preoperative Diagnosis: Rectal bleeding Postoperative Diagnosis: Diverticulosis Internal hemorrhoids Procedure(s) Performed: colonoscopy Anesthesia: MAC Surgeon: Kvng Mills Pathology: none sent Condition: stable Disposition: PACU Description of Procedure: The patient's placed on the endoscopy table in the lateral position. He received IV sedation. Digital rectal exam was performed. There was a few internal and external hemorrhoids. Flexible colonoscope was then placed patient anus and passed throughout the entire colon. The ileocecal valve was visualized. The cecum, ascending and transverse colon appeared normal. In the descending; there was moderate diverticular changes. The scope was then brought back the rectum and this appeared normal. Scope was withdrawn for patient. There is no evidence of any GI bleed. It is presumed the patient may have bleeding from hemorrhoids or diverticular disease.
[2021-10-31 11:40] VITALS: BP 123/77; PULSE 61
== END 2021-10-31 11:45 | disposition home or self-care (01) ==
LOC: ORWHC2ENDO 08:58
PROVIDERS: ATTEND Surgery
DX: K57.30 Diverticulosis of large intestine without perforation or abscess without bleeding (principal); K64.8 Other hemorrhoids; K64.4 Residual hemorrhoidal skin tags; I48.91 Unspecified atrial fibrillation; K21.9 Gastro-esophageal reflux disease without esophagitis; I10 Essential (primary) hypertension; M19.90 Unspecified osteoarthritis, unspecified site; I25.119 Atherosclerotic heart disease of native coronary artery with unspecified angina pectoris; G89.29 Other chronic pain; M54.50 Low back pain, unspecified; Z87.442 Personal history of urinary calculi; Z90.49 Acquired absence of other specified parts of digestive tract; Z98.84 Bariatric surgery status; Z82.49 Family history of ischemic heart disease and other diseases of the circulatory system; Z79.899 Other long term (current) drug therapy; Z79.1 Long term (current) use of non-steroidal anti-inflammatories (NSAID)
CPT/HCPCS: 45378; J2704